=== PATIENT | male | born 1940 | race Caucasian/White ===

== ENCOUNTER → 2017-02-10 | Outpatient (CLI) | payer MEDICARE, BC ==
--- NOTE | 2017-02-10 15:32 | PN ---
PROGRESS NOTE DATE OF SERVICE: 02/10/2017 36-year-old gentleman who has [facility] of obstructive sleep apnea-hypopnea syndrome. I saw the patient a 1 year ago. Since that time, patient continued to use his equipment every night for the whole night without significant problem. Recently, his mask was changed from the fullface mask to different styles with Poly View mask and patient likes this mask. [place] Sleepiness Scale today is 15. I checked patient's CPAP unit. Usage for the last 6 months 169/180 nights, more than 4 hours 134/180 nights. Average usage 5.5 hours. Pressure is 10 cm of water. Leak is up to 56 L/minute. Apnea-hypopnea index for the last 6 months average 5, which is acceptable normal range. For the last month it is 3.3. MEDICATIONS: Enalapril, simvastatin, and also medication for BPH. The patient does not remember the name. PHYSICAL EXAM: GENERAL Patient in no distress. VITAL SIGNS BP 199/87, HR 74, RR 16, height 5 feet 8 inches, weight 234, BMI 35.5, temperature 97.9, oxygen saturation room air 97%. HEENT PERRLA, EOMI, evaluation of oropharynx showed low position of soft palate. NECK Supple, no JVD. Thyroid is not palpable. LUNGS Clear to percussion and to auscultation. Good air exchange. No wheezing or rhonchi. HEART S1, S2 regular. No murmurs, gallops, or rubs. ABDOMEN Obese. Soft and nontender. Bowel sounds are present. No organomegaly appreciated. EXTREMITIES No clubbing or cyanosis. REVERBERATORY FURNACE SUPERVISOR Awake, alert, and oriented X3. Cranial nerves 2 to 7 intact. There is no fasciculation or atrophy. noted. No focal deficits observed. IMPRESSION: 1. Severe obstructive sleep apnea-hypopnea syndrome apnea-hypopnea index 57.5 with oxygen desaturation to 85% on control with CPAP at the pressure of 10 cm of water. Patient demonstrated good compliance with treatment benefitting from treatment. 2. Obesity. Weight is the same as during the previous visit. 3. History of periodic limb movements during titration, but no any clinical symptoms of leg movements at night. 4. Hypertension. 5. Emphysema. 6. Hyperlipidemia. 7. History of depression. 8. History of sinusitis. 9. Some restriction of nasal breathing. Patient has to use fullface mask. PLAN: 1. Continue treatment with CPAP every night for the whole night with the same pressure. 2. Continue to use Poly View mask. 3. Losing weight. 4. Sleep hygiene time bed for at least 8 hours. 5. No driving if feeling sleepiness. 6. Renew a new prescription for all CPAP supplies including mask, tube, filters. Thank you very much for allowing me to participate in management of your patient. Sincerely, Kodi De Anda MD, PhD, FAASM Diplomat of [place] [employer] [place] [employer] [facility] [employer] [facility] [place] MMODL / ALEJAN: [id number] /
== END | disposition home or self-care (01) ==
LOC: SLEEP 14:16
PROVIDERS: ATTEND Internal Medicine
DX: G47.33 Obstructive sleep apnea (adult) (pediatric) (principal); I10 Essential (primary) hypertension; J43.9 Emphysema, unspecified; E78.5 Hyperlipidemia, unspecified; E66.9 Obesity, unspecified; Z68.35 Body mass index [BMI] 35.0-35.9, adult; Z86.59 Personal history of other mental and behavioral disorders; Z79.899 Other long term (current) drug therapy

== ENCOUNTER → 2017-09-28 | Outpatient (CLI) | payer MEDICARE, BC ==
--- NOTE | 2017-09-28 17:28 | XR ---
EXAMINATION TYPE: XR chest 2V DATE OF EXAM: 09/28/2017 COMPARISON: 11/04/2011 CT HISTORY: 77-year-old male COPD, annual physical TECHNIQUE: Frontal and lateral views FINDINGS: Heart normal size. Some hazy left basilar density compatible with prominent epicardial fat pad. Mild elongation thoracic aorta. Strandy bibasilar opacities, likely atelectasis or scarring. No consolidat ion or pleural effusion. Mild hyperinflation. IMPRESSION: Hyperinflation may reflect underlying emphysema. No acute process identified.
== END | disposition home or self-care (01) ==
LOC: RADXRMAIN 11:11
PROVIDERS: ATTEND Family Medicine
DX: J44.0 Chronic obstructive pulmonary disease with (acute) lower respiratory infection (principal)
CPT/HCPCS: 71046

== ENCOUNTER → 2017-10-18 | Outpatient (CLI) | payer MEDICARE, BC ==
[~2017-10-18] MED LIST: REGADENOSON 0.4 MG/5 ML SYRINGE IV ONE
--- NOTE | 2017-10-18 10:55 | ECHOF ---
Referral Reason:I10 Hypertension, J44.9 COPD MEASUREMENTS -------- HEIGHT: 172.7 cm WEIGHT: 104.3 kg BP: RVIDd: 2.8 cm (< 3.3) IVSd: 1.5 cm (0.6 - 1.1) LVIDd: 6.1 cm (3.9 - 5.3) LVPWd: 1.4 cm (0.6 - 1.1) IVSs: 1.7 cm LVIDs: 4.6 cm LVPWs: 1.5 cm LAESV Index (A-L): 39.29 ml/m Ao Diam: 4.0 cm (2.0 - 3.7) AV Cusp: 1.5 cm (1.5 - 2.6) LA Diam: 3.7 cm (2.7 - 3.8) MV EXCURSION: 17.354 mm (> 18.000) MV EF SLOPE: 61 mm/s (70 - 150) EPSS: 1.5 cm MV E Juan Pablo: 0.63 m/s MV DecT: 252 ms MV A Juan Pablo: 0.68 m/s MV E/A Ratio: 0.93 RAP: 5.00 mmHg RVSP: 13.63 mmHg FINDINGS -------- Sinus rhythm. This was a techncally difficult study with suboptimal views, , Definity utilized for enhancement of i mages. The left ventricular size is normal. There is moderate concentric left ventricular hypertrophy. O verall left ventricular systolic function is mild-moderately impaired with, an EF between 40 - 45 %. Posterior hypokinesis The right ventricle is normal in size. The left atrial size is normal. LA is severely dilated >40 ml/m2 The right atrial size is normal. Lumason used The aortic valve is trileaflet, and appears structurally normal. No aortic stenosis or regurgitation. Mild mitral regurgitation is present. Mild tricuspid regurgitation present. There is no evidence of pulmonary hypertension. The right v entricular systolic pressure, as measured by Doppler, is 13.63mmHg. Trace/mild (physiologic) pulmonic regurgitation. The aortic root size is normal. There is no pericardial effusion. CONCLUSIONS -------- 1. This was a techncally difficult study with suboptimal views, , Definity utilized for enhancement o f images. 2. The left ventricular size is normal. 3. There is moderate concentric left ventricular hypertrophy. 4. Overall left ventricular systolic function is mild-moderately impaired with, an EF between 40 - 45 %. 5. Posterior hypokinesis 6. The right ventricle is normal in size. 7. The left atrial size is normal. 8. LA is severely dilated >40 ml/m2 9. The right atrial size is normal. 10. Lumason used 11. The aortic valve is trileaflet, and appears structurally normal. No aortic stenosis or regurgitat ion. 12. Mild mitral regurgitation is present. 13. Mild tricuspid regurgitation present. 14. There is no evidence of pulmonary hypertension. 15. The right ventricular systolic pressure, as measured by Doppler, is 13.63mmHg. 16. Trace/mild (physiologic) pulmonic regurgitation. 17. The aortic root size is normal. 18. There is no pericardial effusion. FURNACE SETTER: Laura Trevizo RDCS
--- NOTE | 2017-10-18 11:37 | EST ---
EXERCISE STRESS DATE OF SERVICE: 10/18/2017 AGE: 77 SEX: Male HT: 68" WT: 235 pounds PROTOCOL: Lexiscan Cardiolite STAGE: DURATION OF EXERCISE: HEART RATE REST: 88 BLOOD PRESSURE REST: 185/107 MAXIMUM HEART RATE ACHIEVED: 96 MAXIMUM BLOOD PRESSURE: 179/109 85% MPHR: 123 100% MPHR: 145 METS: INDICATIONS: Hypertension, COPD. CLINICAL INFORMATION: This is a 77-year-old male patient referred by Dr. Tony Sandra for a Lexiscan stress test. History of hypertension and COPD. Baseline heart rate 88 beats per minute. Baseline blood pressure 185/107 mmHg. Baseline 12-lead ECG shows normal sinus rhythm with normal NE right bundle branch block pattern with secondary ST changes. The patient received Lexiscan infusion per protocol. No significant change in heart rate or blood pressure. The patient had PVCs through the test. He was nauseated during the test. Nuclear portion will be reported separately. IMPRESSION: 1. Baseline abnormality in the 12-lead ECG. 2. Baseline elevated blood pressure. 3. No definite ECG abnormalities of ischemia during Lexiscan infusion. 4. Nuclear portion will be reported separately. MMODL / IJN: [id number] /
--- NOTE | 2017-10-18 11:41 | NM ---
EXAMINATION TYPE: NM stress lexiscan cardiolite DATE OF EXAM: 10/18/2017 COMPARISON: NONE HISTORY: I10 Hypertension, J44.9 COPD TECHNIQUE: After the intravenous administration of 10 mCi Tc 99m Sestamibi - Cardiolite resting SPEC T images acquired 45 minutes post injection. The patient received 0.4mg Lexiscan, 24.9 mCi Tc 99m Sestamibi - Stress images obtained [address] injection FINDINGS: Review of stress and rest SPECT images demonstrates predominantly fixed defects involving the cardiac apex and inferior wall with a small area reversibility within the cardiac apical region. Stress-karolina efrem ischemia is not excluded. Gated analysis shows normal wall motion with an estimated left ventricu lar ejection fraction of 30 %. Global hypokinesia noted. IMPRESSION: predominantly fixed defects involving the cardiac apex and inferior wall with a small area reversibi lity within the cardiac apical region. Stress-induced ischemia is not excluded.
== END | disposition home or self-care (01) ==
LOC: RADNMMAIN 10-17 07:56
PROVIDERS: ATTEND Family Medicine
DX: I08.1 Rheumatic disorders of both mitral and tricuspid valves (principal); I11.9 Hypertensive heart disease without heart failure; J44.9 Chronic obstructive pulmonary disease, unspecified; R94.31 Abnormal electrocardiogram [ECG] [EKG]
CPT/HCPCS: 93017; 78452; C8929; A9500; J2785; Q9950; 93306

== ENCOUNTER → 2017-11-14 | Outpatient (CLI) | payer MEDICARE, BC ==
[2017-11-14 15:51] LABS: HCT 45.3 % (39.0-53.0); HGB 14.7 gm/dL (13.0-17.5); MCH 29.5 pg (25.0-35.0); MCHC 32.4 g/dL (31.0-37.0); MCV 91.1 fL (80.0-100.0); Mean Platelet Volume 8.4; Platelet Count 171 k/uL (150-450); Potassium 4.4 mmol/L (3.5-5.1); RBC 4.97 m/uL (4.30-5.90); RDW 13.9 % (11.5-15.5); WBC 10.4 k/uL (3.8-10.6)
== END | disposition home or self-care (01) ==
LOC: LABWHC1 15:08
PROVIDERS: ATTEND Internal Medicine Interventional Cardiology
DX: Z01.812 Encounter for preprocedural laboratory examination (principal); I25.10 Atherosclerotic heart disease of native coronary artery without angina pectoris; I11.0 Hypertensive heart disease with heart failure; I50.22 Chronic systolic (congestive) heart failure
CPT/HCPCS: 36415; 80051; 82565; 84520; 85027

== ENCOUNTER 2017-11-22 10:26 | Day surgery (SDC) | payer MEDICARE, BC ==
[2017-11-21 08:37] VITALS: BMI 33.2
[~2017-11-22 10:26] MED LIST changes: +ALPRAZolam 0.25 MG TAB PO PRN; +ALPRAZolam 0.5 MG TAB PO PRN; +ASPIRIN 325 MG TAB PO STA; +ATORVASTATIN 80 MG TAB PO STA; +NITROGLYCERIN SL TABS 0.4 MG TAB SUBLINGUAL PRN; -REGADENOSON 0.4 MG/5 ML SYRINGE IV ONE; +SODIUM CHLORIDE 0.9% 1,000 ML in EMPTY BAG 1 BAG IV ONE
[2017-11-22] MEDS ORDERED: METOPROLOL TARTRATE 5 MG/5 ML VIAL IVP STA (11:45)
[2017-11-22] MEDS ORDERED: hydrALAZINE HCL 20 MG/ML 1 ML VIAL IVP STA ×2 (11:46→15:50)
[2017-11-22] MEDS ORDERED: MIDAZOLAM 2 MG/2 ML VIAL ONE (12:22)
[2017-11-22] MEDS ORDERED: LIDOCAINE 1% INJ 10MG/ML (20 ML MDV) SQ ONE (12:27)
[2017-11-22] MEDS ORDERED: MIDAZOLAM 2 MG/2 ML VIAL IVP ONE ×2 (12:27→12:35)
[2017-11-22] MEDS ORDERED: LIDOCAINE 1% INJ 10MG/ML (20 ML MDV) ONE ×2 (12:27→12:30)
[2017-11-22] MEDS ORDERED: fentaNYL (PF) 50 MCG/ML 2 ML AMP ONE (12:50)
[2017-11-22] MEDS ORDERED: fentaNYL (PF) 50 MCG/ML 2 ML AMP IVP ONE (12:51)
[2017-11-22] MEDS ORDERED: BIVALIRUDIN 250 MG in SODIUM CHLORIDE 0.9% 50 ML IV ONE (13:05)
[2017-11-22] MEDS ORDERED: BIVALIRUDIN BOLUS 250 MG/50 ML IV ONE (13:05)
[2017-11-22] MEDS ORDERED: SODIUM CHLORIDE 0.9% 1,000 ML IV ONE (13:07)
[2017-11-22] MEDS ORDERED: ADENOSINE 90 MG in SODIUM CHLORIDE 0.9% 60 ML IVP ONE (13:07)
[2017-11-22] MEDS ORDERED: HEPARIN SODIUM 1,000 UN/ML (10ML VL) ONE (13:15)
[2017-11-22] MEDS ORDERED: RX INFO: IV CONTRAST WAS GIVEN 1 EACH MISC MISCELLANE PRN (13:17)
[2017-11-22] MEDS ORDERED: SODIUM CHLORIDE 0.9% 1,000 ML IV SCH (13:30)
--- NOTE | 2017-11-22 13:55 | LTR ---
DATE OF SERVICE: 11/22/2017 RE: Ozzy Blanton Dear Dr. Sandra; MrShabbir Blanton underwent a heart catheterization and that revealed intermediate lesion involving the mid RCA. The lesion is nonischemic and confirmed by fractional flow reserve method. I recommended maximize medical treatment and follow up with him. I want to thank you for allowing me to participate in his care and please do not hesitate to call if you have any question or concern. Sincerely, MD CRISTINA Nathan / NGOZI: [id number] /
--- NOTE | 2017-11-22 13:58 | CC ---
CARDIAC CATHETERIZATION REPORT DATE OF SERVICE: 11/22/2017. PERFORMING PHYSICIAN: Forest Chauhan MD. PROCEDURE PERFORMED: 1. Selective left and right coronary angiogram. 2. Right heart catheterization. 3. Left heart catheterization. 4. Selective right and left coronary angiogram. 5. Fractional flow reserve FFR of the RCA. INDICATIONS: This is a pleasant 77-year-old gentleman with a past medical history significant for hypertension as well as dyslipidemia and also history of COPD, who was experiencing symptoms of being tired and fatigued as well as more short of breath with exertion. No chest pain or chest discomfort. He underwent a myocardial perfusion imaging stress test and that revealed an apical ischemia as well as a fixed defect involving the inferior wall of the left ventricle. He underwent an echocardiogram which showed impaired LV function with EF between 40% to 45%. Because of that, heart catheterization was recommended. APPROACH: Right common femoral artery. COMPLICATIONS: None. LEVEL OF SEDATION: Moderate with sedation length of 50 minutes. PROCEDURE DESCRIPTION: After obtaining an informed consent, the patient was brought to cardiac labor relations officer. The right common femoral artery was cannulated using micropuncture technique and a micropuncture wire passed easily then I placed a 6-Malian sheath. Subsequently I did cannulate the right common femoral vein using micropuncture technique under ultrasound guidance. The micropuncture wire passed easily. Then I placed this is an 8-Malian sheath in the right common femoral vein. After that I did right heart catheterization using a Dahlen catheter, which was is inserted through the venous sheath all the way into wedge position. Then I did a pullback to the pulmonary artery, RV, RA as well. Subsequently I did selective right and left coronary angiogram using JR4 and JL4 catheters. After that, I did left heart catheterization using 6-Malian pigtail catheter. Then I did fractional flow reserve FFR of the RCA. HEMODYNAMICS: 1. The pulmonary capillary wedge pressure was 26 mmHg. 2. Pulmonary artery pressures were as follows: Systolic 39, diastolic 24, and mean of 31 mmHg. 3. Right ventricular pressures were as follows: Systolic 64, end-diastolic 12 mmHg. 4. RV pressure was 11 mmHg. SELECTIVE CORONARY ANGIOGRAM: 1. RCA is a large caliber vessel and it is a dominant vessel. The RCA in the midportion has eccentric lesion, appeared to be in the range of 50%. We did an FFR on the lesion and that came in to be nonischemic at 0.89. 2. The left main is angiographically normal. It bifurcates into the circumflex and left anterior descending artery. 3. The left circumflex is a large caliber vessel. It is a nondominant vessel. It is angiographically normal. It gives rise into a large OM branch which seems to be angiographically normal. 4. The proximal LAD has mild disease only. It gives rise into the first and second diagonal branches, both are angiographically normal. The mid LAD and distal LAD are angiographically normal. HEMODYNAMICS OF LEFT VENTRICLE: The left ventricular end-diastolic pressure was about 18 mmHg and no significant gradient was identified across the aortic valve. FFR of the RCA after anticoagulation was initiated using Angiomax. After zeroing the Doppler wire and equalizing between the Doppler wire and the guiding catheter, we did FFR per IV adenosine infusion and the FFR came in to be 0.89 which is nonischemic. CONCLUSION: 1. Mild pulmonary hypertension. The pulmonary artery systolic pressure was 40 mm Hg. 2. Elevated left ventricular end-diastolic pressure. 3. 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 4. Mild disease involving the left anterior descending artery. POSTPROCEDURE MANAGEMENT: Given these findings, I recommended maximize medical treatment only. The patient will be discharged home today. I will follow up with him in the office in a week. MMODL / IJN: [id number] /
[2017-11-22] MEDS ORDERED: ALPRAZolam 0.25 MG TAB PO STA (15:50)
[2017-11-22 18:56] VITALS: PULSE 81; RESP 20; TEMP 98
[2017-11-22 22:08] VITALS: BP 159/75
== END 2017-11-22 23:00 | disposition home or self-care (01) ==
LOC: CATHCVL 10:26 → 3OBS 13:18 → CATHCVL 23:00
PROVIDERS: ATTEND Internal Medicine Interventional Cardiology
DX: I25.110 Atherosclerotic heart disease of native coronary artery with unstable angina pectoris (principal); I42.9 Cardiomyopathy, unspecified; E78.5 Hyperlipidemia, unspecified; R94.39 Abnormal result of other cardiovascular function study; J44.9 Chronic obstructive pulmonary disease, unspecified; E78.00 Pure hypercholesterolemia, unspecified; F17.210 Nicotine dependence, cigarettes, uncomplicated; I27.20 Pulmonary hypertension, unspecified; I11.0 Hypertensive heart disease with heart failure; I50.22 Chronic systolic (congestive) heart failure; Z79.899 Other long term (current) drug therapy
CPT/HCPCS: 93460; 93571; J2250; J0360; J2001; J3010; J0583; J0153; 93453

== ENCOUNTER 2018-10-09 14:36 | Emergency (ER) | payer MEDICARE, BC ==
[2018-10-09 14:57] VITALS: BP 179/92; PULSE 92; RESP 18; TEMP 98.6
[2018-10-09] MEDS ORDERED: SODIUM CHLORIDE 0.9% 500 ML IV STA (16:26)
[2018-10-09] MEDS ORDERED: MECLIZINE 12.5 MG TAB PO STA (16:26)
--- NOTE | 2018-10-09 16:45 | ED ---
General Adult HPI - General Chief complaint: Dizziness Stated complaint: High BP/lightheaded Time Seen by Provider: 10/09/18 16:07 Source: patient Mode of arrival: wheelchair Limitations: no limitations - History of Present Illness Initial comments: Dictation was produced using [employer] dictation software. please excuse any grammatical, word or spelling errors. Chief Complaint: Patient is 78-year-old male with past medical history dyslipidemia, hypertension and hearing difficulties presents with episode of dizziness. History of Present Illness: Patient is 78-year-old male with past medical history dyslipidemia hypertension and heart appearing presents with episode of dizziness. Patient states that today he had episode that lasts several seconds where he felt lightheaded like he was on a fall. He does report that he felt like the room was slightly spinning. He had an episode earlier today and went to lie down during the his symptoms. He states that his symptoms worse with lying flat. His symptoms resolved. He then came to the emergency department for medical evaluation. While checking into the emergency department he had another episode and went to go sit down. 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 Patient states that while waiting in the emergency department room his symptoms abated. He feels fine and at baseline currently. Patient currently on amoxicillin for sore throat that was prescribed by your nose and throat doctor. The ROS documented in this emergency department record has been reviewed and confirmed by me. Those systems with pertinent positive or negative responses have been documented in the HPI. All other systems are other negative and/or noncontributory. PHYSICAL EXAM: General Impression: Alert and oriented x3, not in acute distress HEENT: Normocephalic atraumatic, extra-ocular movements intact, pupils equal and reactive to light bilaterally, mucous membranes moist, impacted cerumen to bilateral external auditory canals Cardiovascular: Heart regular rate and rhythm, S1&S2 audible, no murmurs, rubs or gallops Chest: Lungs clear to auscultation bilaterally, no rhonchi, no wheeze, no rales Abdomen: Bowel sounds present, abdomen soft, non-tender, non-distended, no organomegaly Musculoskeletal: Pulses present and equal in all extremities, no peripheral edema Motor: no focal deficits noted Neurological: CN II-XII grossly intact, no focal motor or sensory deficits noted, left beating nystagmus with left gaze Skin: Intact with no visualized rashes Psych: Normal affect and mood ED course: 78-year-old male presents with episode of dizziness that is positional. Presentation concerning for benign positional vertigo signs upon arrival are within acceptable limits. His blood pressure slightly elevated 179/92. He has a history of hypertension. Patient denies any headache, melody rtness of breath or chest pain. Patient at bedside feels baseline. He does have findings of impacted cerumen to bilateral external auditory canals. Patient denies any palpitations or rapid heartbeat during his episode. Patient had a cardiac catheterization performed in November of last year showing intermediate disease of mid right coronary artery. At the time of the catheterization no intervention was pursued.Bilateral external auditory canals were irrigated. Patient continues to endorse no symptoms. Patient tonight members are visualized. Patient given Antivert. Patient states his symptoms are actually improved. He states that he'll avoid better. Patient denies any dizziness. Basic labs are obtained showing no acute processes. Patient clear for discharge. At this point patient's symptoms are likely secondary to episodic BPPV given positional nature of his symptoms. Told to follow up with his primary care physician. Given 1 tablet of Antivert. Patient given prescription for Antivert told to take it when necessary symptoms. Return precautions discussed patient understandable agreeable to disposition. EKG interpretation: Ventricular rate 95, normal sinus rhythm with right bundle branch block,. 194, care is 144, QTC 517. No FL prolongation, no QTC prolongation, no ST or T-wave changes noted. No old EKG for comparison Overall, this EKG is unremarkable - Related Data Home Medications Medication Instructions Recorded Confirmed Dutasteride/Tamsulosin HCl [Anamika 1 tab PO DAILY 11/21/17 10/09/18 0.5-0.4 mg Capsule] Escitalopram [Lexapro] 20 mg PO DAILY 11/21/17 10/09/18 Losartan Potassium 100 mg PO DAILY 11/21/17 10/09/18 Simvastatin [Zocor] 20 mg PO DAILY 11/21/17 10/09/18 Amoxic-Pot Clav 875-125Mg 1 tab PO BID 10/09/18 10/09/18 [Augmentin 875-125] Furosemide [Lasix] 20 mg PO DAILY 10/09/18 10/09/18 Multivitamins, Thera [Multivitamin 1 tab PO DAILY 10/09/18 10/09/18 (formulary)] hydrALAZINE HCL [Apresoline] 25 mg PO BID 10/09/18 10/09/18 Previous Rx's Medication Instructions Recorded Meclizine [Antivert] 25 mg PO BID PRN #20 tab 10/09/18 Allergies Allergy/AdvReac Type Severity Reaction Status Date / Time No Known Allergies Allergy Verified 10/09/18 17:02 Review of Systems ROS Statement: Those systems with pertinent positive or pertinent negative responses have been documented in the HPI. ROS Other: All systems not noted in ROS Statement are negative. Past Medical History Past Medical History: Hyperlipidemia, Hypertension History of Any Multi-Drug Resistant Organisms: None Reported Past Surgical History: Orthopedic Surgery Past Psychological History: Depression Smoking Status: Current every day smoker Past Alcohol Use History: Rare Past Drug Use History: None Reported General Exam Limitations: no limitations Course Vital Signs 10/09/18 14:53 Temperature 98.6 F Pulse Rate 92 Respiratory 18 Rate Blood Pressure 179/92 O2 Sat by Pulse 93 L Oximetry Medical Decision Making - Lab Data Result diagrams: 10/09/18 16:56 10/09/18 16:56 Lab Results 10/09/18 10/09/18 Range/Units 16:56 16:56 WBC 11.8 H (3.8-10.6) k/uL RBC 4.94 (4.30-5.90) m/uL Hgb 14.9 (13.0-17.5) gm/dL Hct 45.9 (39.0-53.0) % MCV 93.0 (80.0-100.0) fL MCH 30.1 (25.0-35.0) pg MCHC 32.4 (31.0-37.0) g/dL RDW 13.8 (11.5-15.5) % Plt Count 156 (150-450) k/uL Neutrophils % 77 % Lymphocytes % 16 % Monocytes % 4 % Eosinophils % 1 % Basophils % 0 % Neutrophils # 9.2 H (1.3-7.7) k/uL Lymphocytes # 1.9 (1.0-4.8) k/uL Monocytes # 0.5 (0-1.0) k/uL Eosinophils # 0.1 (0-0.7) k/uL Basophils # 0.0 (0-0.2) k/uL Sodium 140 (137-145) mmol/L Potassium 4.2 (3.5-5.1) mmol/L Chloride 106 (98-107) mmol/L Carbon Dioxide 24 (22-30) mmol/L Anion Gap 10 mmol/L BUN 23 H (9-20) mg/dL Creatinine 1.02 (0.66-1.25) mg/dL Est GFR (CKD-EPI)AfAm 82 (>60 ml/min/1.73 sqM) Est GFR (CKD-EPI)NonAf 71 (>60 ml/min/1.73 sqM) Glucose 94 (74-99) mg/dL Calcium 9.0 (8.4-10.2) mg/dL Disposition Clinical Impression: Dizziness Disposition: HOME SELF-CARE Condition: Good Instructions (If sedation given, give patient instructions): Dizziness (ED) Prescriptions: Meclizine [Antivert] 25 mg PO BID PRN #20 tab PRN Reason: dizziness Is patient prescribed a controlled substance at d/c from ED?: No Referrals: Tony Sandra DO [Primary Care Provider] - 1-2 days Time of Disposition: 18:03
[2018-10-09 17:39] LABS: Basophils % (A) 0 %; Eosinophils # (A) 0.1 k/uL (0-0.7); Eosinophils % (A) 1 %; HCT 45.9 % (39.0-53.0); HGB 14.9 gm/dL (13.0-17.5); Lymphocytes # (A) 1.9 k/uL (1.0-4.8); Lymphocytes % (A) 16 %; MCH 30.1 pg (25.0-35.0); MCHC 32.4 g/dL (31.0-37.0); Mean Platelet Volume 7.7; Monocytes # (A) 0.5 k/uL (0-1.0); Monocytes % (A) 4 %; Neutrophils # (A) 9.2 k/uL (1.3-7.7); Neutrophils % (A) 77 %; Platelet Count 156 k/uL (150-450); RBC 4.94 m/uL (4.30-5.90); RDW 13.8 % (11.5-15.5); WBC 11.8 k/uL (3.8-10.6)
[2018-10-09 17:52] LABS: Potassium 4.2 mmol/L (3.5-5.1)
== END 2018-10-09 18:10 | disposition home or self-care (01) ==
LOC: EC 14:36
DX: R42 Dizziness and giddiness (principal); I10 Essential (primary) hypertension; H61.23 Impacted cerumen, bilateral; E78.5 Hyperlipidemia, unspecified; I25.10 Atherosclerotic heart disease of native coronary artery without angina pectoris; F32.9 Major depressive disorder, single episode, unspecified; F17.200 Nicotine dependence, unspecified, uncomplicated; Z95.818 Presence of other cardiac implants and grafts; Z79.899 Other long term (current) drug therapy
CPT/HCPCS: 36415; 80048; 84484; 85025; 93005; 99284

== ENCOUNTER → 2018-10-16 | Outpatient (CLI) | payer MEDICARE, BC ==
--- NOTE | 2018-10-16 14:05 | XR ---
EXAMINATION TYPE: XR chest 2V DATE OF EXAM: 10/16/2018 COMPARISON: 09/28/2017 INDICATION: Sinusitis, history of COPD TECHNIQUE: Frontal and lateral views of the chest are obtained. FINDINGS: The heart size is normal. The pulmonary vasculature is normal. The lungs are clear. IMPRESSION: 1. No acute pulmonary process.
--- NOTE | 2018-10-16 14:10 | CT ---
EXAMINATION TYPE: CT sinus wo con DATE OF EXAM: 10/16/2018 COMPARISON: None HISTORY: Chronic sinusitis CT DLP: 605.90 mGycm CONTRAST: Neuro mL of Isovue 300 The paranasal sinuses are examined in the axial plane at 2 mm thick sections. Reconstructed images i n the coronal plane were obtained. There is dental amalgam scatter artifact The maxillary sinuses are clear. The ethmoid air cells are clear. The sphenoid sinuses are clear. The frontal sinuses are clear. The septum is evaluated. There is septal deviation to the . The ostiomeatal units are patent. There may be prior right lamina Propecia fracture. Nasal bones and maxillary spine are intact. IMPRESSIONS: 1. No suspicious chronic or acute sinusitis type changes
== END | disposition home or self-care (01) ==
LOC: RADCTMAIN 13:20
PROVIDERS: ATTEND Otolaryngology
DX: J32.9 Chronic sinusitis, unspecified (principal); R05 Cough
CPT/HCPCS: 70486; 71046

== ENCOUNTER 2018-12-07 18:49 | Emergency (ER) | payer MEDICARE, BC ==
[2018-12-07] MEDS ORDERED: KETOROLAC 30 MG/ML 1 ML VIAL IVP STA (19:19)
[2018-12-07] MEDS ORDERED: IPRATROPIUM-ALBUTEROL 3 ML NEB INHALATION STA ×2 (19:20→21:40)
--- NOTE | 2018-12-07 19:23 | ED ---
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 He denies any cough fevers chills nausea vomiting sweats he does have shortness of breath no other modifying factors he denies any trauma. MD Complaint: chest pain, other - Related Data Home Medications Medication Instructions Recorded Confirmed Dutasteride/Tamsulosin HCl [Anamika 1 tab PO DAILY 11/21/17 12/07/18 0.5-0.4 mg Capsule] Escitalopram [Lexapro] 20 mg PO DAILY 11/21/17 12/07/18 Losartan Potassium 100 mg PO DAILY 11/21/17 12/07/18 Simvastatin [Zocor] 20 mg PO DAILY 11/21/17 12/07/18 Furosemide [Lasix] 20 mg PO DAILY 10/09/18 12/07/18 Multivitamins, Thera [Multivitamin 1 tab PO DAILY 10/09/18 12/07/18 (formulary)] hydrALAZINE HCL [Apresoline] 25 mg PO BID 10/09/18 12/07/18 Carvedilol Phosphate [Carvedilol 40 mg PO DAILY 12/07/18 12/07/18 ER] Fexofenadine HCl [Noelle Allergy] 180 mg PO DAILY 12/07/18 12/07/18 Montelukast [Singulair] 10 mg PO DAILY 12/07/18 12/07/18 Previous Rx's Medication Instructions Recorded Amoxicillin/Potassium Clav 1 tab PO Q12HR #20 tab 12/07/18 [Augmentin 875-125 Tablet] predniSONE 20 mg PO BID #10 tab 12/07/18 Allergies Allergy/AdvReac Type Severity Reaction Status Date / Time No Known Allergies Allergy Verified 12/07/18 19:51 Review of Systems ROS Statement: Those systems with pertinent positive or pertinent negative responses have been documented in the HPI. ROS Other: All systems not noted in ROS Statement are negative. EKG Findings - EKG Results: EKG: interpreted by SANTYD, sinus rhythm (Sinus rhythm right bundle-branch block pattern rate was 79. Interval 170 QRS duration 172 QT since QTC 458/525) Past Medical History Past Medical History: Hyperlipidemia, Hypertension History of Any Multi-Drug Resistant Organisms: None Reported Past Surgical History: Heart Catheterization, Orthopedic Surgery Past Psychological History: Depression Smoking Status: Current every day smoker Past Alcohol Use History: Rare Past Drug Use History: None Reported General Exam - General Exam Comments Initial Comments: This a well-developed well-nourished awake alert oriented 3 male Limitations: no limitations General appearance: alert, anxious Head exam: Present: atraumatic, normocephalic, normal inspection Eye exam: Present: normal appearance, PERRL, EOMI. Absent: scleral icterus, conjunctival injection, periorbital swelling ENT exam: Present: normal exam, mucous membranes moist Neck exam: Present: normal inspection. Absent: tenderness, meningismus, lymphadenopathy Respiratory exam: Present: decreased breath sounds. Absent: respiratory distress, wheezes, rales, rhonchi, stridor, chest wall tenderness Cardiovascular Exam: Present: regular rate, normal rhythm, normal heart sounds. Absent: systolic murmur, diastolic murmur, rubs, gallop, clicks GI/Abdominal exam: Present: soft, normal bowel sounds. Absent: distended, tenderness, guarding, rebound, rigid, bruit, pulsatile mass Extremities exam: Present: normal inspection, full ROM, normal capillary refill. Absent: tenderness, pedal edema, joint swelling, calf tenderness Back exam: Present: normal inspection Neurological exam: Present: alert, oriented X3, CN II-XII intact Psychiatric exam: Present: normal affect, normal mood Skin exam: Present: warm, dry, intact, normal color. Absent: rash Course Vital Signs 12/07/18 12/07/18 12/07/18 18:52 19:19 19:28 Temperature 97.9 F Pulse Rate 77 82 Respiratory 18 20 16 Rate Blood Pressure 169/103 O2 Sat by Pulse 97 Oximetry 12/07/18 12/07/18 12/07/18 19:36 20:44 22:02 Temperature 99.5 F Pulse Rate 80 72 70 Respiratory 20 18 18 Rate Blood Pressure 144/84 O2 Sat by Pulse 94 L Oximetry 12/07/18 22:14 Temperature Pulse Rate 69 Respiratory 20 Rate Blood Pressure O2 Sat by Pulse Oximetry - Reevaluation(s) Reevaluation #1: 12/07/18 22:18 Patient did get some increased aeration and some relief with the initial treatment. CAT scan was done shows no evidence of any PE. Some increased interstitial markings pneumonia is considered. Procedures - Smoking Cessation Time Spent Discussing Smoking Cessation w/Patient (Minutes): 3 Patient Acknowledges Need for Cessation: Yes Chest Pain MDM - MDM I did review the imaging and report evidence of interstitial pneumonitis is evident. No pulmonary emboli. I did a long discussion with patient on several occasions was offered admission but is refusing to stay at this time he will be discharged home on oral antibiotics and steroids she is follow-up with his doctor return when necessary he also was encouraged to quit smoking Disposition Clinical Impression: Pneumonia, Chronic obstructive pulmonary disease (COPD), Smoking Disposition: HOME SELF-CARE Condition: Stable Instructions (If sedation given, give patient instructions): Community Acquired Pneumonia (ED), COPD (Chronic Obstructive Pulmonary Disease) (ED), How to Stop Smoking (ED) Additional Instructions: Prescriptions sent to your preferred pharmacy Prescriptions: Amoxicillin/Potassium Clav [Augmentin 875-125 Tablet] 1 tab PO Q12HR #20 tab predniSONE 20 mg PO BID #10 tab Is patient prescribed a controlled substance at d/c from ED?: No Referrals: Tony Sandra DO [Primary Care Provider] - 1-2 days
[2018-12-07 19:38] LABS: Basophils # (A) 0.1 k/uL (0-0.2); Basophils % (A) 0 %; Eosinophils # (A) 0.3 k/uL (0-0.7); Eosinophils % (A) 1 %; HCT 45.1 % (39.0-53.0); HGB 15.1 gm/dL (13.0-17.5); Lymphocytes # (A) 2.8 k/uL (1.0-4.8); Lymphocytes % (A) 15 %; MCH 31.6 pg (25.0-35.0); MCHC 33.5 g/dL (31.0-37.0); MCV 94.4 fL (80.0-100.0); Mean Platelet Volume 8.1; Monocytes # (A) 1.3 k/uL (0-1.0); Monocytes % (A) 7 %; Neutrophils # (A) 14.5 k/uL (1.3-7.7); Neutrophils % (A) 76 %; Platelet Count 171 k/uL (150-450); RBC 4.78 m/uL (4.30-5.90); RDW 14.1 % (11.5-15.5)
[2018-12-07 19:56] LABS: Albumin 4.2 g/dL (3.5-5.0); Magnesium 1.9 mg/dL (1.6-2.3); Total Bilirubin 0.6 mg/dL (0.2-1.3); Total Protein 7.2 g/dL (6.3-8.2)
[2018-12-07 20:03] LABS: INR 0.9 (<1.2); Partial Thromboplastin Time 26.8 sec (22.0-30.0); Prothrombin Time 10.1 sec (9.0-12.0)
[2018-12-07 20:05] LABS: D-Dimer 2.71 mg/L FEU (<0.60)
--- NOTE | 2018-12-07 20:32 | XR ---
EXAMINATION TYPE: XR chest 2V DATE OF EXAM: 12/07/2018 COMPARISON: 10/16/2018 HISTORY: Chest pain TECHNIQUE: Frontal and lateral views of the chest are obtained. FINDINGS: Heart is normal. Lungs are clear of consolidation. There are no hilar masses. There are ch est leads. There is no evidence of pleural effusion. IMPRESSION: No active cardiopulmonary disease. No change.
--- NOTE | 2018-12-07 21:08 | CT ---
EXAMINATION TYPE: CT angio chest DATE OF EXAM: 12/07/2018 8:59 PM COMPARISON: None HISTORY: Left sided chest pain. CT DLP: 486.1 mGycm Automated exposure control for dose reduction was used. CONTRAST: CTA scan of the thorax is performed with IV Contrast, patient injected with 88ml mL of Isovue 300, pu lmonary embolism protocol. There are 3-D post processed images.. FINDINGS: There is patchy pulmonary interstitial edema. There is no pleural effusion. There is mild subsegmenta l atelectasis at the lung bases. Heart is enlarged. There are no hilar masses. There is no thoracic a ortic aneurysm or dissection. The thoracic aorta is atheromatous. There are multiple small mediastina l lymph nodes that measure up to 1 cm. There is normal contrast opacification of the pulmonary arteries. There are no filling defects. There is spurring in the thoracic spine. I see no bony destructive process. IMPRESSION: CARDIOMEGALY. PULMONARY INTERSTITIAL EDEMA. THIS COULD RELATE TO PULMONARY INTERSTITIAL FIBROSIS OR P NEUMONIA OR HEART FAILURE. EDEMA APPEARS NEW COMPARED TO OLD CT SCAN OF 11/04/2011. NO EVIDENCE OF PULMONARY EMBOLISM.
[2018-12-07] MEDS ORDERED: cefTRIAXone IN SWFI 1,000 MG/10 ML SYRINGE IVP STA (21:39)
[2018-12-07 23:04] VITALS: BP 130/96; PULSE 70; RESP 18; TEMP 99.3
== END 2018-12-07 23:14 | disposition home or self-care (01) ==
LOC: EC 18:49
DX: J44.9 Chronic obstructive pulmonary disease, unspecified (principal); J18.9 Pneumonia, unspecified organism; I10 Essential (primary) hypertension; E78.5 Hyperlipidemia, unspecified; F32.9 Major depressive disorder, single episode, unspecified; F17.200 Nicotine dependence, unspecified, uncomplicated; Z71.6 Tobacco abuse counseling; Z79.02 Long term (current) use of antithrombotics/antiplatelets; Z79.899 Other long term (current) drug therapy; Z95.5 Presence of coronary angioplasty implant and graft
CPT/HCPCS: 99285 ×2; 96374 ×2; 96375 ×2; 36415; 94640 ×2; 93005; 85379; 80053; 82550; 83690; 83735; 84484; 85025; 85610; 85730; 71046; 71275; J0696; J1885; Q9967

== ENCOUNTER → 2019-02-20 | Outpatient (CLI) | payer MEDICARE, BC ==
--- NOTE | 2019-02-20 15:26 | XR ---
EXAMINATION TYPE: XR knee complete bilateral DATE OF EXAM: 02/20/2019 CLINICAL HISTORY: Chronic pain of bilateral knees. TECHNIQUE: Three views of the bilateral knees were obtained. Additional frontal weightbearing AP vie w of both knees was obtained. COMPARISON: None. FINDINGS: There is no acute fracture/dislocation evident in either knee. The tri-compartment joint spaces appear aligned. Mild medial compartment joint space narrowing is seen bilaterally. Small trico mpartmental osteophytes are noted. The overlying soft tissue appears unremarkable. IMPRESSION: There is no acute fracture or dislocation in either knee. Mild bilateral tricompartmenta l arthropathy.
== END | disposition home or self-care (01) ==
LOC: RADXRMAIN 13:35
PROVIDERS: ATTEND Family Medicine
DX: M17.0 Bilateral primary osteoarthritis of knee (principal)

== ENCOUNTER → 2019-09-24 | Outpatient (CLI) | payer MEDICARE, BC ==
--- NOTE | 2019-09-24 11:39 | XR ---
EXAMINATION TYPE: XR elbow complete RT DATE OF EXAM: 09/24/2019 CLINICAL HISTORY: Nonhealing wound. Pain and swelling. TECHNIQUE: Frontal, lateral and oblique images of the right elbow are obtained. COMPARISON: None FINDINGS: There is no acute fracture/dislocation evident in the right elbow. No abnormal fat pad si gns are seen. [id number]-[id number] ulnohumeral articulation spurring. Large spurring or ossification fro m the olecranon at the distal triceps tendon attachment where there is [id number] subcutaneous edema extending proximally and along the ulnar aspect. No suspicious bony destruction or cortical sundar ction to suggest acute osteomyelitis IMPRESSION: As above.
== END | disposition home or self-care (01) ==
LOC: RADXRMAIN 11:18
PROVIDERS: ATTEND Family Medicine
DX: L03.113 Cellulitis of right upper limb (principal)

== ENCOUNTER 2019-12-30 21:40 | Emergency (ER) | payer BC, MEDICARE ==
[2019-12-30] MEDS ORDERED: SODIUM CHLORIDE 0.9% 500 ML 500 ML IV STA (21:57)
[2019-12-30] MEDS ORDERED: TRIMETHOBENZAMIDE 100 MG/ML 2 ML VIAL IM STA (22:02)
[2019-12-30] MEDS ORDERED: diphenhydrAMINE 50 MG/ML 1 ML VIAL IVP STA (22:05)
[2019-12-30 22:40] LABS: Basophils % (A) 0 %; Eosinophils # (A) 0.2 k/uL (0-0.7); Eosinophils % (A) 2 %; HCT 47.6 % (39.0-53.0); HGB 15.6 gm/dL (13.0-17.5); Lymphocytes # (A) 2.5 k/uL (1.0-4.8); Lymphocytes % (A) 20 %; MCH 31.4 pg (25.0-35.0); MCHC 32.8 g/dL (31.0-37.0); MCV 95.6 fL (80.0-100.0); Mean Platelet Volume 9.2; Monocytes # (A) 0.7 k/uL (0-1.0); Monocytes % (A) 5 %; Neutrophils # (A) 9.1 k/uL (1.3-7.7); Neutrophils % (A) 72 %; Platelet Count 165 k/uL (150-450); RBC 4.98 m/uL (4.30-5.90); RDW 13.7 % (11.5-15.5); WBC 12.6 k/uL (3.8-10.6)
[2019-12-30 23:02] LABS: Albumin 3.9 g/dL (3.5-5.0); Calcium 9.5 mg/dL (8.4-10.2); Potassium 3.6 mmol/L (3.5-5.1); Total Bilirubin 0.7 mg/dL (0.2-1.3); Total Protein 6.6 g/dL (6.3-8.2)
--- NOTE | 2019-12-30 23:18 | CT ---
EXAMINATION TYPE: CT brain wo con DATE OF EXAM: 12/30/2019 COMPARISON: HISTORY: weakness CT DLP: 1107.4 mGycm Automated exposure control for dose reduction was used. There is cerebral cortical atrophy. There is no mass effect nor midline shift. There is no sign of in tracranial hemorrhage. There is patchy hypodensity in the periventricular white matter. There is old 2 x 1 cm lacunar infarct in the anterior left internal capsule. There is some enlargement of the fron giovanny horn left lateral ventricle. The calvarium is intact. The skull base is intact. IMPRESSION: Cerebral atrophy. Chronic small vessel ischemia. 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 No a cute intracranial abnormality.
--- NOTE | 2019-12-30 23:24 | XR ---
EXAMINATION TYPE: XR chest 2V DATE OF EXAM: 12/30/2019 COMPARISON: 12/07/2017 HISTORY: Pain TECHNIQUE: FINDINGS: There is no heart failure nor confluent pneumonic infiltrate. Costophrenic angles are clear . There is relative poor inspiration. There are chest leads. IMPRESSION: Poor inspiration similar to old exam. Normal heart.
--- NOTE | 2019-12-30 23:25 | XR ---
EXAMINATION TYPE: XR KUB DATE OF EXAM: 12/30/2019 COMPARISON: NONE HISTORY: Abdominal pain TECHNIQUE: 2 views supine FINDINGS: There is no sign of intestinal obstruction or pneumoperitoneum. Fecal pattern is normal. Joselyn ng bases are clear. There are no pathologic calcifications over the kidneys. There is no evidence of abdominal mass. IMPRESSION: Nonacute abdomen.
[2019-12-30 23:40] LABS: Appearance,Urine Clear (Clear); Bilirubin,Urine Negative (Negative); Blood,Urine Negative (Negative); Color,Urine Yellow; Glucose,Urine (UA) Negative (Negative); Ketones,Urine Negative (Negative); Leukocyte Esterase,Urine Negative (Negative); Nitrite,Urine Negative (Negative); PH, Urine 5.5 (5.0-8.0); Protein,Urine Negative (Negative); Urobilinogen,Urine <2.0 mg/dL (<2.0)
[2019-12-30] MEDS ORDERED: ASPIRIN 81 MG PO STA (23:48)
[2019-12-30] MEDS ORDERED: NITROGLYCERIN SL TABS 0.4 MG TAB SUBLINGUAL PRN (23:48)
--- NOTE | 2019-12-31 00:14 | ED ---
General Adult HPI - General Source: patient, RN notes reviewed, old records reviewed Mode of arrival: wheelchair <Myke Le - Last Filed: 12/31/19 00:25> <Jesusita Price - Last Filed: 12/31/19 02:56> - General Chief complaint: Nausea/Vomiting/Diarrhea Stated complaint: Syncope,Dizziness Time Seen by Provider: 12/30/19 21:51 - History of Present Illness Initial comments: 79-year-old male patient presents to ED for evaluation of nausea and vomiting. Patient is poorly sitting at the table stating he didn't feel well he reportedly started sweating then began having nausea and vomiting. Patient denies chest pain or shortness of breath. Reportedly had a headache earlier in the day which has resolved. Denies any other acute complaints. Systemic: Pt denies fatigue, fever/chills, rash. Pt denies weakness, night sweats, weight loss. Neuro: Pt denies headache, visual disturbances, syncope or pre-syncope. HEENT: Pt denies ocular discharge or irritation, otalgia, rhinorrhea, pharyngitis or notable lymphadenopathy. Cardiopulmonary: Pt denies chest pain, SOB, heart palpitations, dyspnea on exertion. Abdominal/GI: Pt denies abdominal pain. : Pt denies dysuria, burning w/ urination, frequency/urgency. Denies new onset urinary or bowel incontinence. MSK: Pt denies myalgia, loss of strength or function in extremities. Neuro: Pt denies new onset weakness, paresthesias. (Myke Le) - Related Data Home Medications Medication Instructions Recorded Confirmed Dutasteride/Tamsulosin HCl [Anamika 1 tab PO DAILY 11/21/17 12/30/19 0.5-0.4 mg Capsule] Losartan Potassium 100 mg PO DAILY 11/21/17 12/30/19 Simvastatin [Zocor] 20 mg PO DAILY 11/21/17 12/30/19 Furosemide [Lasix] 20 mg PO DAILY 10/09/18 12/30/19 Multivitamins, Thera [Multivitamin 1 tab PO DAILY 10/09/18 12/30/19 (formulary)] hydrALAZINE HCL [Apresoline] 25 mg PO DAILY 10/09/18 12/30/19 Carvedilol Phosphate [Carvedilol 40 mg PO DAILY 12/07/18 12/30/19 ER] Montelukast [Singulair] 10 mg PO DAILY 12/07/18 12/30/19 Aspirin EC [Ecotrin Low Dose] 81 mg PO DAILY 12/30/19 12/30/19 Cetirizine HCl [Zyrtec] 10 mg PO DAILY 12/30/19 12/30/19 DULoxetine HCL [Cymbalta] 30 mg PO DAILY 12/30/19 12/30/19 DULoxetine HCL [Cymbalta] 60 mg PO DAILY 12/30/19 12/30/19 Allergies Allergy/AdvReac Type Severity Reaction Status Date / Time No Known Allergies Allergy Verified 12/30/19 21:47 Review of Systems ROS Other: All systems not noted in ROS Statement are negative. <Myke Le - Last Filed: 12/31/19 00:25> ROS Other: All systems not noted in ROS Statement are negative. <Jesusita Price - Last Filed: 12/31/19 02:56> ROS Statement: Those systems with pertinent positive or pertinent negative responses have been documented in the HPI. Past Medical History Past Medical History: Hyperlipidemia, Hypertension History of Any Multi-Drug Resistant Organisms: None Reported Past Surgical History: Heart Catheterization, Orthopedic Surgery Past Psychological History: Depression Smoking Status: Current every day smoker Past Alcohol Use History: Rare Past Drug Use History: None Reported <Myke Le - Last Filed: 12/31/19 00:25> General Exam <Myke Le - Last Filed: 12/31/19 00:25> - General Exam Comments Initial Comments: Constitutional: NAD, AOX3, Pt has pleasant affect. HEENT: NC/AT, trachea midline, neck supple, no lymphadenopathy. Posterior pharynx non erythematous, without exudates. External ears appear normal, without discharge. Mucous membranes moist. Eyes PERRLA, EOM intact. There is no scleral icterus. No pallor noted. Cardiopulmonary: RRR, no murmurs, rubs or gallops, no JVD noted. Lungs CTAB in anterior and posterior tobin. No peripheral edema. Abdominal exam: Abdomen soft and non-distended. Abdomen non-tender to palpation in all 4 quadrants. Bowel sounds active in LLQ. No hepatosplenomegaly. No ecchymosis Neuro: CN II-XII intact. No nuchal rigidity. No raccon eyes, no card sign, no hemotympanum. No cervical spinal tenderness. MSK:Sensation intact in upper and lower extremities. Full active ROM in upper and lower extremities, 5/5 stregnth. (Myke Le) Course Vital Signs 12/30/19 12/30/19 12/30/19 21:43 22:00 23:00 Temperature 97.9 F Pulse Rate 72 66 64 Respiratory 18 18 16 Rate Blood Pressure 145/89 140/88 122/73 O2 Sat by Pulse 98 96 97 Oximetry 12/31/19 00:55 Temperature 98.9 F Pulse Rate 64 Respiratory 16 Rate Blood Pressure 154/90 O2 Sat by Pulse 96 Oximetry Medical Decision Making - Lab Data Result diagrams: 12/30/19 22:13 12/30/19 22:13 - EKG Data -: EKG Interpreted by Me (and Dr. Price ) <Myke Le - Last Filed: 12/31/19 00:25> - Lab Data Result diagrams: 12/30/19 22:13 12/30/19 22:13 <Jesusita Price - Last Filed: 12/31/19 02:56> - Medical Decision Making 79-year-old male patient see for nausea and vomiting. Patient also had some diaphoresis. Patient's vital signs are stable, afebrile. Physical exam did not display acute pathology. Patient was initially vomiting the room. Patient was administered some Benadryl and his symptoms resolved. I investigation revealed mild leukocytosis and mildly elevated troponin. EKG repeat EKG do reveal acute changes including lateral inversions. I recommended patient stay in hospital. I explained in depth his elevated troponin as well as EKG changes or highly suspicious of acute coronary syndrome and that he could be having a heart attack and explained that he needed to stay in hospital. I explained that going home could result in . Patient verbalizes understanding. is also in room with patient and also verbalizes understanding. Patient was seen by Dr. Price who also explained our high concern for an acute cardiac process and patient contniues to refuse to stay in hospital. Will leave AMA. (Myke Le) Patient was initially seen and evaluated by PA. Based on patient's elevated troponin I do feel he needs to be admitted to the hospital for atypical presentation of ACS considering his age and risk factors. This plan was discussed with the patient and at bedside. Patient adamantly declining admission to the hospital. A repeat EKG was obtained which revealed inversion of the T waves in V3-5 which is concerning for an ischemic process. I did discuss this with the patient and his . They made the patient aware that he may be having a heart attack and that if he goes home he could . Patient was able to express understanding of this but continued to adamantly declined admission to the hospital. Patient insisted on going home. Patient's encouraging him to stay, I left the room and gave his approximately 15 minutes to have this discussion with him however upon return she states that she can't change his mind that he understands the risks she understands the risks and the patient wants to be discharged home. The patient has decided to leave against medical advice because he does not wish to stay in the hospital The patient has adequate capacity to make medical decisions. The patient refuses hospital admission and wants to be discharged. The risks have been explained to the patient, including worsening illness, chronic pain, permanent disability and . The benefits of workup/admission have also been explained, including the availability and proximity of nurses, physicians, monitoring, diagnostic testing, treatment and evaluation by commercial census taker The patient was able to understand and state the risks and benefits of hospital admission. This was witnessed by TREMAINE Jolly, and me. The patient the opportunity to ask questions about their medical condition. The patient was treated to the extent that they would allow and knows that they may return for care at any time. (Jesusita Price) - Lab Data Lab Results 12/30/19 12/30/19 12/30/19 Range/Units 22:13 22:13 22:13 WBC 12.6 H (3.8-10.6) k/uL RBC 4.98 (4.30-5.90) m/uL Hgb 15.6 (13.0-17.5) gm/dL Hct 47.6 (39.0-53.0) % MCV 95.6 (80.0-100.0) fL MCH 31.4 (25.0-35.0) pg MCHC 32.8 (31.0-37.0) g/dL RDW 13.7 (11.5-15.5) % Plt Count 165 (150-450) k/uL Neutrophils % 72 % Lymphocytes % 20 % Monocytes % 5 % Eosinophils % 2 % Basophils % 0 % Neutrophils # 9.1 H (1.3-7.7) k/uL Lymphocytes # 2.5 (1.0-4.8) k/uL Monocytes # 0.7 (0-1.0) k/uL Eosinophils # 0.2 (0-0.7) k/uL Basophils # 0.0 (0-0.2) k/uL Sodium 140 (137-145) mmol/L Potassium 3.6 (3.5-5.1) mmol/L Chloride 106 (98-107) mmol/L Carbon Dioxide 26 (22-30) mmol/L Anion Gap 8 mmol/L BUN 22 H (9-20) mg/dL Creatinine 1.03 (0.66-1.25) mg/dL Est GFR (CKD-EPI)AfAm 81 (>60 ml/min/1.73 sqM) Est GFR (CKD-EPI)NonAf 70 (>60 ml/min/1.73 sqM) Glucose 123 H (74-99) mg/dL Plasma Lactic Acid Eitan (0.7-2.0) mmol/L Calcium 9.5 (8.4-10.2) mg/dL Total Bilirubin 0.7 (0.2-1.3) mg/dL AST 29 (17-59) U/L ALT 25 (4-49) U/L Alkaline Phosphatase 73 (38-126) U/L Troponin I (0.000-0.034) ng/mL Total Protein 6.6 (6.3-8.2) g/dL Albumin 3.9 (3.5-5.0) g/dL Lipase 58 (23-300) U/L Urine Color Yellow Urine Appearance Clear (Clear) Urine pH 5.5 (5.0-8.0) Ur Specific [place] 1.020 (1.001-1.035) Urine Protein Negative (Negative) Urine Glucose (UA) Negative (Negative) Urine Ketones Negative (Negative) Urine Blood Negative (Negative) Urine Nitrite Negative (Negative) Urine Bilirubin Negative (Negative) Urine Urobilinogen <2.0 (<2.0) mg/dL Ur Leukocyte Esterase Negative (Negative) 12/30/19 12/30/19 Range/Units 22:13 22:13 WBC (3.8-10.6) k/uL RBC (4.30-5.90) m/uL Hgb (13.0-17.5) gm/dL Hct (39.0-53.0) % MCV (80.0-100.0) fL MCH (25.0-35.0) pg MCHC (31.0-37.0) g/dL RDW (11.5-15.5) % Plt Count (150-450) k/uL Neutrophils % % Lymphocytes % % Monocytes % % Eosinophils % % Basophils % % Neutrophils # (1.3-7.7) k/uL Lymphocytes # (1.0-4.8) k/uL Monocytes # (0-1.0) k/uL Eosinophils # (0-0.7) k/uL Basophils # (0-0.2) k/uL Sodium (137-145) mmol/L Potassium (3.5-5.1) mmol/L Chloride (98-107) mmol/L Carbon Dioxide (22-30) mmol/L Anion Gap mmol/L BUN (9-20) mg/dL Creatinine (0.66-1.25) mg/dL Est GFR (CKD-EPI)AfAm (>60 ml/min/1.73 sqM) Est GFR (CKD-EPI)NonAf (>60 ml/min/1.73 sqM) Glucose (74-99) mg/dL Plasma Lactic Acid Eitan 2.0 (0.7-2.0) mmol/L Calcium (8.4-10.2) mg/dL Total Bilirubin (0.2-1.3) mg/dL AST (17-59) U/L ALT (4-49) U/L Alkaline Phosphatase (38-126) U/L Troponin I 0.037 H* (0.000-0.034) ng/mL Total Protein (6.3-8.2) g/dL Albumin (3.5-5.0) g/dL Lipase (23-300) U/L Urine Color Urine Appearance (Clear) Urine pH (5.0-8.0) Ur Specific [place] (1.001-1.035) Urine Protein (Negative) Urine Glucose (UA) (Negative) Urine Ketones (Negative) Urine Blood (Negative) Urine Nitrite (Negative) Urine Bilirubin (Negative) Urine Urobilinogen (<2.0) mg/dL Ur Leukocyte Esterase (Negative) - EKG Data EKG Comments: 1) Ventricular rate 73, PT interval 172, QRS 172, QT/Qtc 468/515. Normal sinus rhythm, possible atrial enlargement, right bundle branch block. 2) ventricular rate 68,. Full 174, QRS 176, QT/QTc 452/480. Sinus rhythm and premature atrial complexes. New Inversions V4 V5 and V6 and V3. (Myke Le) Disposition Is patient prescribed a controlled substance at d/c from ED?: No <Myke Le - Last Filed: 12/31/19 00:25> Is patient prescribed a controlled substance at d/c from ED?: No <Jesusita Price - Last Filed: 12/31/19 02:56> Clinical Impression: Nausea and vomiting, Elevated troponin, Acute electrocardiogram changes Disposition: Left Against Medical Advice Condition: Undetermined Instructions (If sedation given, give patient instructions): Acute Nausea and Vomiting (ED) Additional Instructions: Follow up with your commercial census taker and PCP tomorrow. Return to ED immediately if any new symptoms develop or if you feel worse in anyway. Referrals: Forest Chauhan MD [STAFF PHYSICIAN] - 1-2 days Tony Sandra DO [Primary Care Provider] - 1-2 days
--- NOTE | 2019-12-31 00:28 | ED ---
Medical Decision Making - Lab Data Result diagrams: 12/30/19 22:13 12/30/19 22:13 Lab Results 12/30/19 12/30/19 12/30/19 Range/Units 22:13 22:13 22:13 WBC 12.6 H (3.8-10.6) k/uL RBC 4.98 (4.30-5.90) m/uL Hgb 15.6 (13.0-17.5) gm/dL Hct 47.6 (39.0-53.0) % MCV 95.6 (80.0-100.0) fL MCH 31.4 (25.0-35.0) pg MCHC 32.8 (31.0-37.0) g/dL RDW 13.7 (11.5-15.5) % Plt Count 165 (150-450) k/uL Neutrophils % 72 % Lymphocytes % 20 % Monocytes % 5 % Eosinophils % 2 % Basophils % 0 % Neutrophils # 9.1 H (1.3-7.7) k/uL Lymphocytes # 2.5 (1.0-4.8) k/uL Monocytes # 0.7 (0-1.0) k/uL Eosinophils # 0.2 (0-0.7) k/uL Basophils # 0.0 (0-0.2) k/uL Sodium 140 (137-145) mmol/L Potassium 3.6 (3.5-5.1) mmol/L Chloride 106 (98-107) mmol/L Carbon Dioxide 26 (22-30) mmol/L Anion Gap 8 mmol/L BUN 22 H (9-20) mg/dL Creatinine 1.03 (0.66-1.25) mg/dL Est GFR (CKD-EPI)AfAm 81 (>60 ml/min/1.73 sqM) Est GFR (CKD-EPI)NonAf 70 (>60 ml/min/1.73 sqM) Glucose 123 H (74-99) mg/dL Plasma Lactic Acid E[place] (0.7-2.0) mmol/L Calcium 9.5 (8.4-10.2) mg/dL Total Bilirubin 0.7 (0.2-1.3) mg/dL AST 29 (17-59) U/L ALT 25 (4-49) U/L Alkaline Phosphatase 73 (38-126) U/L Troponin I (0.000-0.034) ng/mL Total Protein 6.6 (6.3-8.2) g/dL Albumin 3.9 (3.5-5.0) g/dL Lipase 58 (23-300) U/L Urine Color Yellow Urine Appearance Clear (Clear) Urine pH 5.5 (5.0-8.0) Ur Specific [place] 1.020 (1.001-1.035) Urine Protein Negative (Negative) Urine Glucose (UA) Negative (Negative) Urine Ketones Negative (Negative) Urine Blood Negative (Negative) Urine Nitrite Negative (Negative) Urine Bilirubin Negative (Negative) Urine Urobilinogen <2.0 (<2.0) mg/dL Ur Leukocyte Esterase Negative (Negative) 12/30/19 12/30/19 Range/Units 22:13 22:13 WBC (3.8-10.6) k/uL RBC (4.30-5.90) m/uL Hgb (13.0-17.5) gm/dL Hct (39.0-53.0) % MCV (80.0-100.0) fL MCH (25.0-35.0) pg MCHC (31.0-37.0) g/dL RDW (11.5-15.5) % Plt Count (150-450) k/uL Neutrophils % % Lymphocytes % % Monocytes % % Eosinophils % % Basophils % % Neutrophils # (1.3-7.7) k/uL Lymphocytes # (1.0-4.8) k/uL Monocytes # (0-1.0) k/uL Eosinophils # (0-0.7) k/uL Basophils # (0-0.2) k/uL Sodium (137-145) mmol/L Potassium (3.5-5.1) mmol/L Chloride (98-107) mmol/L Carbon Dioxide (22-30) mmol/L Anion Gap mmol/L BUN (9-20) mg/dL Creatinine (0.66-1.25) mg/dL Est GFR (CKD-EPI)AfAm (>60 ml/min/1.73 sqM) Est GFR (CKD-EPI)NonAf (>60 ml/min/1.73 sqM) Glucose (74-99) mg/dL Plasma Lactic Acid Eitan 2.0 (0.7-2.0) mmol/L Calcium (8.4-10.2) mg/dL Total Bilirubin (0.2-1.3) mg/dL AST (17-59) U/L ALT (4-49) U/L Alkaline Phosphatase (38-126) U/L Troponin I 0.037 H* (0.000-0.034) ng/mL Total Protein (6.3-8.2) g/dL Albumin (3.5-5.0) g/dL Lipase (23-300) U/L Urine Color Urine Appearance (Clear) Urine pH (5.0-8.0) Ur Specific [place] (1.001-1.035) Urine Protein (Negative) Urine Glucose (UA) (Negative) Urine Ketones (Negative) Urine Blood (Negative) Urine Nitrite (Negative) Urine Bilirubin (Negative) Urine Urobilinogen (<2.0) mg/dL Ur Leukocyte Esterase (Negative) Disposition Clinical Impression: Nausea and vomiting, Elevated troponin, Acute electrocardiogram changes Disposition: Left Against Medical Advice Condition: Undetermined Instructions (If sedation given, give patient instructions): Acute Nausea and Vomiting (ED) Additional Instructions: Follow up with your bulk sugar handler and PCP tomorrow. Return to ED immediately if any new symptoms develop or if you feel worse in anyway. Is patient prescribed a controlled substance at d/c from ED?: No Referrals: Tony Sandra DO [Primary Care Provider] - 1-2 days Forest Chuahan MD [STAFF PHYSICIAN] - 1-2 days
[2019-12-31 00:52] VITALS: PULSE 64; RESP 16
[2019-12-31 00:57] VITALS: BP 154/90; TEMP 98.9
[2019-12-31] MEDS ORDERED: ASPIRIN 325 MG TAB PO SCH (09:00)
== END 2019-12-31 00:54 | disposition left against medical advice (07) ==
LOC: EC 21:40
DX: R11.2 Nausea with vomiting, unspecified (principal); R79.89 Other specified abnormal findings of blood chemistry; R94.31 Abnormal electrocardiogram [ECG] [EKG]; D72.829 Elevated white blood cell count, unspecified; R61 Generalized hyperhidrosis; E78.5 Hyperlipidemia, unspecified; I10 Essential (primary) hypertension; F32.9 Major depressive disorder, single episode, unspecified; F17.200 Nicotine dependence, unspecified, uncomplicated; Z79.82 Long term (current) use of aspirin; Z79.899 Other long term (current) drug therapy; Z53.20 Procedure and treatment not carried out because of patient's decision for unspecified reasons; Z95.5 Presence of coronary angioplasty implant and graft
CPT/HCPCS: 99285; 96374; 96361; 36415; 93005; 80053; 83605; 83690; 84484; 85025; 81003; 71046; 74018; 70450; J1200

== ENCOUNTER → 2020-01-14 | Day surgery (SDC) | payer BC, MEDICARE ==
[2020-01-11 09:31] VITALS: BMI 29.0
[~2020-01-14] MED LIST changes: +ASPIRIN 325 MG TAB PO ONE; -ASPIRIN 325 MG TAB PO STA; +ATORVASTATIN 80 MG TAB PO ONE; -ATORVASTATIN 80 MG TAB PO STA; +HEPARIN SODIUM 1,000 UN/ML (10ML VL) ONE; +IOPAMIDOL-370 125ML BTL INJ ONE; +LIDOCAINE 1% INJ 10MG/ML (20 ML MDV) ONE; +LIDOCAINE 1% INJ 10MG/ML (20 ML MDV) SQ ONE; +RX INFO: IV CONTRAST WAS GIVEN 1 EACH MISC MISCELLANE PRN; +SODIUM CHLORIDE 0.9% 1,000 ML IV SCH; +VERAPAMIL 2.5 MG/ML 2 ML AMP ONE; +VERAPAMIL SYRINGE (5 MG/10 ML) INTRAARTER ONE; +hydrALAZINE HCL 20 MG/ML 1 ML VIAL IV ONE; +hydrALAZINE HCL 20 MG/ML 1 ML VIAL ONE
[2020-01-14 08:36] VITALS: RESP 18; TEMP 97.8
[2020-01-14] MEDS: MIDAZOLAM 2 MG/2 ML VIAL IV ONE ×2 (09:37→09:41)
--- NOTE | 2020-01-14 12:39 | CC ---
CARDIAC CATHETERIZATION REPORT DATE OF SERVICE: January 14, 2020. PERFORMING PHYSICIAN: Forest Chauhan MD. PROCEDURE PERFORMED: 1. Selective right and left coronary angiogram. 2. Left heart catheterization. INDICATION: This is a 79-year-old gentleman with coronary artery disease and known to have intermediate lesion involving the right coronary artery as well as history of smoking and hypertension and dyslipidemia who was experiencing symptoms of chest discomfort. He unfortunately continues to smoke in spite of multiple attempts of smoking cessation. Because of the symptoms of chest pain were concerning for angina, a heart catheterization was advised. APPROACH: Right radial artery. COMPLICATION: None. LEVEL OF SEDATION: Moderate with sedation length of 13 minutes. PROCEDURE DESCRIPTION: After obtaining an informed consent, the patient was brought to the cardiac quality assurance qa lab analyst. The right radial artery was cannulated using micropuncture technique, the micropuncture wire passed easily. Then I placed a 6-Maltese sheath. I gave the patient 2 mg of verapamil IA and 8000 units of heparin IV. Selective right and left coronary angiogram performed using JR4 and JL3.5 catheters. Left heart catheterization was performed using the JL 23.5 which crossed the aortic valve. The procedure was completed without any complication. SELECTIVE CORONARY ANGIOGRAM: 1. The right coronary artery is a large caliber vessel. It is a dominant vessel. The proximal RCA has mild disease only. The mid RCA has eccentric lesion appeared to be in the range of 30% to 40%. The RCA distally is normal and bifurcates into PDA and PLV branches, both appeared to have mild diffuse disease only. 2. The left main is a large caliber vessel. It is angiographically normal. It bifurcates into LCX and LAD. 3. The LCX is a large caliber vessel. It is a nondominant vessel. The LCX is angiographically normal. In the proximal portion gives rise into a large OM branch which worked as ramus intermedius and appeared to be angiographically normal. 4. The left anterior descending artery: The proximal LAD appeared to have intermediate lesion in the range of 50%. This is by the bifurcation of the first diagonal branch which appeared to be angiographically normal. The mid and distal LAD appeared to be angiographically normal. HEMODYNAMICS: The LVEDP was 18 mmHg without significant gradient across aortic valve. CONCLUSION: 1. Intermediate disease involving the mid RCA and mid LAD. 2. Elevated LVEDP. POSTPROCEDURE MANAGEMENT: 1. Medical treatment. 2. Follow up with the patient. MMODL / IJN: [id number] /
--- NOTE | 2020-01-14 12:47 | LTR ---
DATE OF SERVICE: January 14, 2020. Dear Dr. Sandra: MrShabbir Blanton underwent today heart catheterization and that revealed intermediate disease involving the mid right coronary artery and proximal left anterior descending artery. I advised maximized medical treatment including aggressive cholesterol control as well as smoking cessation. I want to thank you for allowing us to participate in his care and please do not hesitate to call if you have any questions or concerns. Sincerely, MMODL / IJN: [id number] /
[2020-01-14 13:27] VITALS: BP 139/75; PULSE 70
== END ==
LOC: CATHCVL 07:55
PROVIDERS: ATTEND Internal Medicine Interventional Cardiology
DX: I25.110 Atherosclerotic heart disease of native coronary artery with unstable angina pectoris (principal); F17.210 Nicotine dependence, cigarettes, uncomplicated; I10 Essential (primary) hypertension; I42.8 Other cardiomyopathies; E66.9 Obesity, unspecified; E78.5 Hyperlipidemia, unspecified; Z79.82 Long term (current) use of aspirin; Z79.899 Other long term (current) drug therapy; Z68.30 Body mass index [BMI] 30.0-30.9, adult
CPT/HCPCS: 93458; C1769 ×2; C1894; J2250; J0360; J2001; J1644; Q9967

== ENCOUNTER → 2020-06-06 | Outpatient (CLI) | payer MEDICARE ==
--- NOTE | 2020-06-06 13:34 | CT ---
EXAMINATION TYPE: CT brain wo/w con DATE OF EXAM: 06/06/2020 COMPARISON: 12/30/2019 HISTORY: Syncope, weakness and headaches. CT DLP: 2163.2mGycm CONTRAST: CT scan of the head is performed without and with IV Contrast, patient injected with 100 mL of Isovue M300. Unenhanced followed by contrast enhanced CT of the brain is submitted for evaluation. The ventricles basal cisterns and sulci overlying the cerebral convexities restrict moderate enlargement. Periventri cular white matter ischemic demyelination noted. Remote insult left basal ganglia. No intracranial he morrhage seen. There is an enhancing lesion noted measuring 1.2 cm adjacent to the sylvian cistern on the right. There is also an area of abnormal enhancement involving the superior cerebellum measuring approximately 1 cm. IMPRESSION: 1. Nonspecific lesions. MRI of the brain recommended.
== END | disposition home or self-care (01) ==
LOC: RADCTMAIN 11:53
PROVIDERS: ATTEND Family Medicine
DX: G93.9 Disorder of brain, unspecified (principal); G43.909 Migraine, unspecified, not intractable, without status migrainosus
CPT/HCPCS: 82565; 84520; 70470; 36415; Q9967

== ENCOUNTER 2020-06-20 09:16 | Day surgery (SDC) | payer MEDICARE ==
[2020-06-18 09:47] VITALS: BMI 28.3
[~2020-06-20 09:16] MED LIST changes: -ALPRAZolam 0.25 MG TAB PO PRN; -ALPRAZolam 0.5 MG TAB PO PRN; -ASPIRIN 325 MG TAB PO ONE; -ATORVASTATIN 80 MG TAB PO ONE; -HEPARIN SODIUM 1,000 UN/ML (10ML VL) ONE; -IOPAMIDOL-370 125ML BTL INJ ONE; +LACTATED RINGERS 1,000 ML IV SCH; +LIDOCAINE 1% (10MG/ML) FOR IV START INTRADERMA PRN; -LIDOCAINE 1% INJ 10MG/ML (20 ML MDV) ONE; -LIDOCAINE 1% INJ 10MG/ML (20 ML MDV) SQ ONE; -NITROGLYCERIN SL TABS 0.4 MG TAB SUBLINGUAL PRN; -RX INFO: IV CONTRAST WAS GIVEN 1 EACH MISC MISCELLANE PRN; -SODIUM CHLORIDE 0.9% 1,000 ML IV SCH; -SODIUM CHLORIDE 0.9% 1,000 ML in EMPTY BAG 1 BAG IV ONE; -VERAPAMIL 2.5 MG/ML 2 ML AMP ONE; -VERAPAMIL SYRINGE (5 MG/10 ML) INTRAARTER ONE; -hydrALAZINE HCL 20 MG/ML 1 ML VIAL IV ONE; -hydrALAZINE HCL 20 MG/ML 1 ML VIAL ONE
[2020-06-20 09:43] VITALS: RESP 16; TEMP 98.2
[2020-06-20] MEDS ORDERED: hydrALAZINE HCL 20 MG/ML 1 ML VIAL IVP ONE (09:52)
[2020-06-20] MEDS ORDERED: LABETALOL SYRINGE 5 MG/ML IVP ONE (09:57)
[2020-06-20] MEDS ORDERED: PROPOFOL 10 MG/ML 20 ML VIAL IV ONE (10:04)
--- NOTE | 2020-06-20 10:09 | P.GSHP ---
History of Present Illness H&P Date: 06/20/20 79-year-old male presents today for upper and lower endoscopy. He has had recent weight loss. He also has had significant weakness. He denies any hematemesis or blood in his stool. He denies any family history of colon cancer. He has never had an upper endoscopy and has had a lower endoscopy many years ago and does not recall the results. - Review of Systems All systems: negative Past Medical History Past Medical History: COPD, Hyperlipidemia, Hypertension, Prostate Disorder Additional Past Medical History / Comment(s): HAS BEEN LOSING WT, POOR BALANCE, ABD PAIN History of Any Multi-Drug Resistant Organisms: None Reported Past Surgical History: Heart Catheterization, Orthopedic Surgery Additional Past Surgical History / Comment(s): arthroscopic knee surg., cataracts removed, HEART CATH 01/14/20, COLONOSCOPY Past Anesthesia/Blood Transfusion Reactions: No Reported Reaction Smoking Status: Current every day smoker - Past Family History Father Family Medical History: Cancer Medications and Allergies Home Medications Medication Instructions Recorded Confirmed Type Dutasteride/Tamsulosin HCl [Anamika 1 tab PO DAILY 11/21/17 06/20/20 History 0.5-0.4 mg Capsule] Losartan Potassium 100 mg PO DAILY 11/21/17 06/20/20 History Simvastatin [Zocor] 20 mg PO DAILY 11/21/17 06/20/20 History Furosemide [Lasix] 20 mg PO DAILY 10/09/18 06/20/20 History Multivitamins, Thera [Multivitamin 1 tab PO DAILY 10/09/18 06/20/20 History (formulary)] hydrALAZINE HCL [Apresoline] 25 mg PO DAILY 10/09/18 06/20/20 History Carvedilol Phosphate [Carvedilol 40 mg PO DAILY 12/07/18 06/20/20 History ER] Montelukast [Singulair] 10 mg PO DAILY 12/07/18 06/20/20 History DULoxetine HCL [Cymbalta] 30 mg PO DAILY 12/30/19 06/20/20 History DULoxetine HCL [Cymbalta] 60 mg PO DAILY 12/30/19 06/20/20 History Isosorbide Mononitrate [Isosorbide 30 mg PO DAILY 01/11/20 06/20/20 History Mononitrate ER] Allergies Allergy/AdvReac Type Severity Reaction Status Date / Time No Known Allergies Allergy Verified 06/20/20 09:43 Surgical - Exam Osteopathic Statement: *. No significant issues noted on an osteopathic structural exam other than those noted in the History and Physical/Consult. Vital Signs Temp Pulse Resp BP Pulse Ox 98.2 F 78 16 212/107 98 06/20/20 09:31 06/20/20 09:31 06/20/20 09:31 06/20/20 09:31 06/20/20 09:31 - General well developed, well nourished, no distress - Neck trachea midline - Abdomen Abdomen: soft, non tender - Psychiatric oriented to time, oriented to person, oriented to place Assessment and Plan Plan: 79-year-old male with recent weight loss. Plan is for upper and lower endoscopy. Risks, benefits and alternatives were provided to the patient. He did provide consent prior to attending the endoscopy suite.
--- NOTE | 2020-06-20 10:37 | P.PCN ---
Date of Procedure: 06/20/20 Preoperative Diagnosis: Weight loss Postoperative Diagnosis: Gastritis Duodenitis Diverticulosis Procedure(s) Performed: EGD with biopsy Colonoscopy Anesthesia: MAC Surgeon: Jose Alejandro Chan Pathology: other (Biopsies of duodenum, antrum, esophagus) Condition: stable Disposition: same day Indications for Procedure: 79-year-old male with recent weight loss and abdominal pain presents for upper and lower endoscopy. Denies any blood in his stool. Denies any hematemesis. Never has had an upper endoscopy. States his last colonoscopy was many years ago. No known family history of gastrointestinal cancer. Risks, benefits and alternatives were provided to the patient. He did provide consent prior to attending the endoscopy suite. Operative Findings: Gastritis Duodenitis Diverticulosis Description of Procedure: The patient was brought to the endoscopy suite and was placed in left lateral decubitus position and adequate sedation was achieved using conscious sedation. A bite block was placed and an endoscope was placed in the oropharynx and advanced under endoscopic visualization. The endoscope was advanced through the esophagus into the stomach, through the gastric antrum and in through the pylorus. The third portion of the duodenum was visualized. The endoscope was then slowly withdrawn. The first portion of duodenum was noted to have inflammatory changes. Biopsies were taken. The antrum was noted to have inflammatory changes. Biopsies were taken. The gastric cardia distend normally and the gastric folds appeared normal and flattened with insufflation. A retroflexed view of the fundus and GE junction revealed a mild hiatal hernia. The esophagus appeared endoscopically normal biopsies were taken. Excess air was removed and the scope was withdrawn. A digital rectal exam was performed and mild internal hemorrhoids were palpated. An endoscope was then placed in the rectum and advanced to the cecum as identified by landmarks including the appendiceal orifice and the ileocecal valve. The prep was good. The colonoscope was then slowly withdrawn, examining for any mucosal abnormalities. The cecum, ascending, transverse, descending and sigmoid colon were visualized adequately. There were no large neoplastic l esions throughout the colon. There were no obvious polyps noted throughout the colon. Diverticulosis was noted to be scattered throughout the sigmoid and descending colon. Retroflexion was performed in the rectum and internal hemorrhoids were visible. Excess air was removed, the colonoscope withdrawn and the procedure terminated. The patient was then transferred to the recovery unit in stable condition. Repeat colonoscopy should be performed based on symptoms due to the patient's age.
[2020-06-20 10:58] VITALS: BP 147/73; PULSE 81
== END 2020-06-20 11:27 | disposition home or self-care (01) ==
LOC: ORWHC2ENDO 09:16
PROVIDERS: ATTEND Surgery
DX: K57.30 Diverticulosis of large intestine without perforation or abscess without bleeding (principal); K64.8 Other hemorrhoids; K29.50 Unspecified chronic gastritis without bleeding; K29.80 Duodenitis without bleeding; K31.9 Disease of stomach and duodenum, unspecified; K31.89 Other diseases of stomach and duodenum; K20.90 Esophagitis, unspecified without bleeding; K44.9 Diaphragmatic hernia without obstruction or gangrene; I10 Essential (primary) hypertension; E78.5 Hyperlipidemia, unspecified; J44.9 Chronic obstructive pulmonary disease, unspecified; F17.200 Nicotine dependence, unspecified, uncomplicated; F32.9 Major depressive disorder, single episode, unspecified; H91.90 Unspecified hearing loss, unspecified ear; N42.9 Disorder of prostate, unspecified; Z91.19 Patient's noncompliance with other medical treatment and regimen; Z79.899 Other long term (current) drug therapy; Z98.890 Other specified postprocedural states; Z98.41 Cataract extraction status, right eye; Z98.42 Cataract extraction status, left eye
CPT/HCPCS: 88305; 45378; 43239; J0360; J2704

== ENCOUNTER → 2020-06-21 | Outpatient (CLI) | payer MEDICARE ==
--- NOTE | 2020-06-21 11:10 | MR ---
EXAMINATION TYPE: MR brain wo/w con DATE OF EXAM: 06/21/2020 COMPARISON: None HISTORY: Suncope, weakness, headaches, abnormal CT brain. TECHNIQUE: Multiplanar, multisequence images of the brain and brainstem is performed without and with IV contras t, utilizing 9 mL intravenous Gadavist . FINDINGS: The ventricles, basal cisterns and sulci over the convexities are prominent but appropriate for the p atient's age. There is no mass effect or shift of the midline structures. There are multiple remote lacunar infarcts in the left basal ganglia and in the left aspect of the po ns. There is diffuse abnormal increased signal intensity in the white matter both cerebral hemisphere s consistent with chronic ischemic white matter demyelination. On the diffusion-weighted images, there is a small focal acute lacunar infarct adjacent to the atrium of the left lateral ventricle. Following contrast administration, there is no pathological enhancement throughout the brain parenchy ma. The intraorbital contents appear normal and symmetric. Visualized paranasal sinuses are well aerated. There is inflammatory changes in the mastoid air cells left greater than right. IMPRESSION: 1. Small acute lacunar infarct in the white matter of the left cerebral hemisphere adjacent to the at rium of the left lateral ventricle. 2. Significant chronic ischemic changes including ischemic white matter changes and multiple remote l acunar infarcts involving the left genevieve and left basal ganglia. 3. Moderate to marked atrophy appropriate for the patient's age. 4. No mass, or mass effect or pathological enhancement. 5. Inflammatory changes in the mastoid air cells left greater than right.
== END ==
LOC: RADMRIMAIN 09:38
PROVIDERS: ATTEND Family Medicine
DX: I63.81 Other cerebral infarction due to occlusion or stenosis of small artery (principal); I67.82 Cerebral ischemia; G31.9 Degenerative disease of nervous system, unspecified
CPT/HCPCS: 70553; A9585

== ENCOUNTER 2020-07-23 10:28 | Emergency (ER) | payer MEDICARE ==
[2020-07-23 10:33] VITALS: TEMP 97.8
[2020-07-23] MEDS ORDERED: IPRATROPIUM-ALBUTEROL 3 ML NEB INHALATION STA (10:39)
--- NOTE | 2020-07-23 10:42 | ED ---
General Adult HPI - General Chief complaint: Shortness of Breath Stated complaint: SOB Time Seen by Provider: 07/23/20 10:33 Source: patient, family, RN notes reviewed Mode of arrival: wheelchair Limitations: physical limitation - History of Present Illness Initial comments: Patient is a pleasant 79-year-old male presenting to the emergency Department w ith shortness of breath. Majority of history is taken from the . Patient states he feels like he needs something to open up his lungs. states patient of his. A little short of breath over the past couple of days. Patient does have some chronic dyspnea. Patient reportedly has history of COPD. No leg pain or leg swelling. No cough. No fevers. No chest pain. Patient has been immunized for coronavirus. Patient does not normally exert himself much and only walks to and from the bathroom chronically. - Related Data Home Medications Medication Instructions Recorded Confirmed Dutasteride/Tamsulosin HCl [Anamika 1 tab PO DAILY 11/21/17 07/23/20 0.5-0.4 mg Capsule] Simvastatin [Zocor] 20 mg PO DAILY 11/21/17 07/23/20 Furosemide [Lasix] 20 mg PO DAILY 10/09/18 07/23/20 hydrALAZINE HCL [Apresoline] 25 mg PO BID 10/09/18 07/23/20 Carvedilol Phosphate [Carvedilol 40 mg PO DAILY 12/07/18 07/23/20 ER] DULoxetine HCL [Cymbalta] 30 mg PO DAILY 12/30/19 07/23/20 DULoxetine HCL [Cymbalta] 60 mg PO DAILY 12/30/19 07/23/20 Aspirin 81 mg PO DAILY 07/23/20 07/23/20 Clopidogrel Bisulfate [Plavix] 75 mg PO DAILY 07/23/20 07/23/20 Docusate [Colace] 100 mg PO DAILY 07/23/20 07/23/20 Multivit-Min/FA/Lycopen/Lutein 1 tab PO DAILY 07/23/20 07/23/20 [Centrum Silver Men Tablet] Allergies Allergy/AdvReac Type Severity Reaction Status Date / Time No Known Allergies Allergy Verified 07/23/20 12:56 Review of Systems ROS Statement: Those systems with pertinent positive or pertinent negative responses have been documented in the HPI. ROS Other: All systems not noted in ROS Statement are negative. Constitutional: Denies: fever, chills Eyes: Denies: eye pain ENT: Denies: ear pain Respiratory: Reports: dyspnea Cardiovascular: Denies: chest pain Endocrine: Denies: fatigue Gastrointestinal: Denies: abdominal pain Genitourinary: Denies: dysuria Musculoskeletal: Denies: back pain Skin: Denies: rash Neurological: Denies: weakness Past Medical History Past Medical History: Coronary Artery Disease (CAD), CVA/TIA, Hyperlipidemia, Hypertension Additional Past Medical History / Comment(s): and pt are poor historian History of Any Multi-Drug Resistant Organisms: None Reported Past Surgical History: Heart Catheterization, Orthopedic Surgery Additional Past Surgical History / Comment(s): arthroscopic knee surg., cataracts removed Past Anesthesia/Blood Transfusion Reactions: No Reported Reaction Past Psychological History: Depression Smoking Status: Current every day smoker Past Alcohol Use History: None Reported Past Drug Use History: None Reported General Exam Limitations: physical limitation General appearance: alert, in no apparent distress Head exam: Present: normocephalic Eye exam: Present: normal appearance Neck exam: Present: normal inspection Respiratory exam: Present: normal lung sounds bilaterally Cardiovascular Exam: Present: regular rate, normal rhythm GI/Abdominal exam: Present: soft. Absent: tenderness Extremities exam: Present: normal inspection. Absent: pedal edema, calf tenderness Neurological exam: Present: alert Psychiatric exam: Present: normal affect, normal mood Skin exam: Present: normal color Course Vital Signs 07/23/20 07/23/20 07/23/20 10:29 11:00 12:00 Temperature 97.8 F Pulse Rate 53 L 88 83 Respiratory 20 18 18 Rate Blood Pressure 194/104 166/94 155/108 O2 Sat by Pulse 96 94 L 93 L Oximetry 07/23/20 12:29 Temperature Pulse Rate 79 Respiratory 18 Rate Blood Pressure 151/91 O2 Sat by Pulse 94 L Oximetry EKG Findings - EKG Comments: EKG Findings:: Sinus rhythm with a rate of 94. OK 190. QRS 162. QT 426. QTc 532. Left axis. Right bundle branch block. PVCs present. Nonspecific T waves. Medical Decision Making - Medical Decision Making Case was discussed in detail with Dr. Hutchinson, who will admit covering for Dr. Sandra. Patient and family reevaluated and updated. Patient is refusing admission. Patient is alert and oriented 3 and does make his own decisions. is present. Patient is aware of concern regarding progression and possible as well as presence of heart injury/strain. Patient is strongly advised to stay however refuses multiple times even despite family intervention. - Lab Data Result diagrams: 07/23/20 10:47 07/23/20 10:47 Lab Results 07/23/20 07/23/20 07/23/20 Range/Units 10:47 10:47 10:47 WBC 12.4 H (3.8-10.6) k/uL RBC 4.44 (4.30-5.90) m/uL Hgb 14.7 (13.0-17.5) gm/dL Hct 42.0 (39.0-53.0) % MCV 94.6 (80.0-100.0) fL MCH 33.1 (25.0-35.0) pg MCHC 35.0 (31.0-37.0) g/dL RDW 13.6 (11.5-15.5) % Plt Count 144 L (150-450) k/uL MPV 8.8 Neutrophils % 81 % Lymphocytes % 13 % Monocytes % 4 % Eosinophils % 1 % Basophils % 0 % Neutrophils # 10.1 H (1.3-7.7) k/uL Lymphocytes # 1.6 (1.0-4.8) k/uL Monocytes # 0.5 (0-1.0) k/uL Eosinophils # 0.2 (0-0.7) k/uL Basophils # 0.0 (0-0.2) k/uL PT 11.1 (9.0-12.0) sec INR 1.1 (<1.2) APTT 24.8 (22.0-30.0) sec D-Dimer 6.52 H (<0.60) mg/L FEU Sodium 140 (137-145) mmol/L Potassium 3.3 L (3.5-5.1) mmol/L Chloride 106 (98-107) mmol/L Carbon Dioxide 23 (22-30) mmol/L Anion Gap 11 mmol/L BUN 20 (9-20) mg/dL Creatinine 0.96 (0.66-1.25) mg/dL Est GFR (CKD-EPI)AfAm 88 (>60 ml/min/1.73 sqM) Est GFR (CKD-EPI)NonAf 77 (>60 ml/min/1.73 sqM) Glucose 155 H (74-99) mg/dL Plasma Lactic Acid Eitan (0.7-2.0) mmol/L Calcium 9.2 (8.4-10.2) mg/dL Total Bilirubin 0.8 (0.2-1.3) mg/dL AST 27 (17-59) U/L ALT 34 (4-49) U/L Alkaline Phosphatase 73 (38-126) U/L Troponin I (0.000-0.034) ng/mL NT-Pro-B Natriuret Pep pg/mL Total Protein 6.1 L (6.3-8.2) g/dL Albumin 3.6 (3.5-5.0) g/dL Coronavirus (PCR) (Not Detectd) 07/23/20 07/23/20 07/23/20 Range/Units 10:47 10:47 10:47 WBC (3.8-10.6) k/uL RBC (4.30-5.90) m/uL Hgb (13.0-17.5) gm/dL Hct (39.0-53.0) % MCV (80.0-100.0) fL MCH (25.0-35.0) pg MCHC (31.0-37.0) g/dL RDW (11.5-15.5) % Plt Count (150-450) k/uL MPV Neutrophils % % Lymphocytes % % Monocytes % % Eosinophils % % Basophils % % Neutrophils # (1.3-7.7) k/uL Lymphocytes # (1.0-4.8) k/uL Monocytes # (0-1.0) k/uL Eosinophils # (0-0.7) k/uL Basophils # (0-0.2) k/uL PT (9.0-12.0) sec INR (<1.2) APTT (22.0-30.0) sec D-Dimer (<0.60) mg/L FEU Sodium (137-145) mmol/L Potassium (3.5-5.1) mmol/L Chloride (98-107) mmol/L Carbon Dioxide (22-30) mmol/L Anion Gap mmol/L BUN (9-20) mg/dL Creatinine (0.66-1.25) mg/dL Est GFR (CKD-EPI)AfAm (>60 ml/min/1.73 sqM) Est GFR (CKD-EPI)NonAf (>60 ml/min/1.73 sqM) Glucose (74-99) mg/dL Plasma Lactic Acid Eitan 1.6 (0.7-2.0) mmol/L Calcium (8.4-10.2) mg/dL Total Bilirubin (0.2-1.3) mg/dL AST (17-59) U/L ALT (4-49) U/L Alkaline Phosphatase (38-126) U/L Troponin I 0.059 H* (0.000-0.034) ng/mL NT-Pro-B Natriuret Pep 9830 pg/mL Total Protein (6.3-8.2) g/dL Albumin (3.5-5.0) g/dL Coronavirus (PCR) (Not Detectd) 07/23/20 Range/Units 10:47 WBC (3.8-10.6) k/uL RBC (4.30-5.90) m/uL Hgb (13.0-17.5) gm/dL Hct (39.0-53.0) % MCV (80.0-100.0) fL MCH (25.0-35.0) pg MCHC (31.0-37.0) g/dL RDW (11.5-15.5) % Plt Count (150-450) k/uL MPV Neutrophils % % Lymphocytes % % Monocytes % % Eosinophils % % Basophils % % Neutrophils # (1.3-7.7) k/uL Lymphocytes # (1.0-4.8) k/uL Monocytes # (0-1.0) k/uL Eosinophils # (0-0.7) k/uL Basophils # (0-0.2) k/uL PT (9.0-12.0) sec INR (<1.2) APTT (22.0-30.0) sec D-Dimer (<0.60) mg/L FEU Sodium (137-145) mmol/L Potassium (3.5-5.1) mmol/L Chloride (98-107) mmol/L Carbon Dioxide (22-30) mmol/L Anion Gap mmol/L BUN (9-20) mg/dL Creatinine (0.66-1.25) mg/dL Est GFR (CKD-EPI)AfAm (>60 ml/min/1.73 sqM) Est GFR (CKD-EPI)NonAf (>60 ml/min/1.73 sqM) Glucose (74-99) mg/dL Plasma Lactic Acid Eitan (0.7-2.0) mmol/L Calcium (8.4-10.2) mg/dL Total Bilirubin (0.2-1.3) mg/dL AST (17-59) U/L ALT (4-49) U/L Alkaline Phosphatase (38-126) U/L Troponin I (0.000-0.034) ng/mL NT-Pro-B Natriuret Pep pg/mL Total Protein (6.3-8.2) g/dL Albumin (3.5-5.0) g/dL Coronavirus (PCR) Not Detected (Not Detectd) - Radiology Data Radiology results: report reviewed (CT of the chest shows no evidence of pulmona ry embolism. Suspect CHF.), image reviewed (Chest x-ray shows cardiomegaly with small bilateral effusions. Potential for atelectasis or infiltrate.) Disposition Clinical Impression: Congestive heart failure Disposition: Left Against Medical Advice Instructions (If sedation given, give patient instructions): Heart Failure (ER) Additional Instructions: Please follow-up with your knock up assembler and primary care physician tomorrow. It was recommended that you stay in the hospital however you are leaving AGAINST MEDICAL ADVICE. Continue aspirin daily. Please increased your dose of Lasix from 20 mg daily up to 60 mg daily for the next 3 days. Further advice. Cardiology and primary care physician. Please return at any time for worsening symptoms, chest pain or shortness of breath, confusion or any other concerns. Is patient prescribed a controlled substance at d/c from ED?: No Referrals: Tony Sandra DO [Primary Care Provider] - 1-2 days Time of Disposition: 13:39 Decision Time: 12:58
[2020-07-23 11:19] LABS: Basophils % (A) 0 %; Eosinophils # (A) 0.2 k/uL (0-0.7); Eosinophils % (A) 1 %; HGB 14.7 gm/dL (13.0-17.5); Lymphocytes # (A) 1.6 k/uL (1.0-4.8); Lymphocytes % (A) 13 %; MCH 33.1 pg (25.0-35.0); MCV 94.6 fL (80.0-100.0); Mean Platelet Volume 8.8; Monocytes # (A) 0.5 k/uL (0-1.0); Monocytes % (A) 4 %; Neutrophils # (A) 10.1 k/uL (1.3-7.7); Neutrophils % (A) 81 %; Platelet Count 144 k/uL (150-450); RBC 4.44 m/uL (4.30-5.90); RDW 13.6 % (11.5-15.5); WBC 12.4 k/uL (3.8-10.6)
[2020-07-23 11:26] LABS: Albumin 3.6 g/dL (3.5-5.0); Calcium 9.2 mg/dL (8.4-10.2); Potassium 3.3 mmol/L (3.5-5.1); Total Bilirubin 0.8 mg/dL (0.2-1.3); Total Protein 6.1 g/dL (6.3-8.2)
[2020-07-23] MEDS ORDERED: ALBUTEROL HFA INHALER INHALATION STA (11:31)
--- NOTE | 2020-07-23 11:33 | XR ---
EXAMINATION TYPE: XR chest 2V DATE OF EXAM: 07/23/2020 COMPARISON: Chest x-ray December 30, 2019 HISTORY: Shortness of breath. TECHNIQUE: Frontal and lateral views of the chest are obtained. FINDINGS: Mild cardiomegaly redemonstrated. Small to tiny bilateral pleural effusions. Left greater than right bibasilar opacities. Possible overlying loop recorder frontal view less well seen on later al view The osseous structures are intact. IMPRESSION: Possible CHF exacerbation. Stable mild cardiomegaly with small to tiny bilateral pleural effusions on current study. Bibasilar acute atelectasis and/or infiltrate noted.
[2020-07-23 11:34] LABS: INR 1.1 (<1.2); Partial Thromboplastin Time 24.8 sec (22.0-30.0); Prothrombin Time 11.1 sec (9.0-12.0)
[2020-07-23 11:39] LABS: D-Dimer 6.52 mg/L FEU (<0.60)
[2020-07-23 12:04] VITALS: RESP 18
--- NOTE | 2020-07-23 12:52 | CT ---
EXAMINATION TYPE: CT angio chest DATE OF EXAM: 07/23/2020 12:24 PM COMPARISON: CTA chest December 07, 2018. Chest x-ray earlier today. HISTORY: Shortness of breath CT DLP: 435.2 mGycm Automated exposure control for dose reduction was used. CONTRAST: CTA scan of the thorax is performed with IV Contrast, patient injected with 100 mL of Isovue 370, pul monary embolism protocol. MIP images are created and reviewed. FINDINGS: LUNGS: Exam suboptimal as patient unable to hold breath. This limits evaluation for subcentimeter nod ules. Confirmation of small bilateral pleural effusions. Additional areas of mild alveolar and inters titial edema. No pneumothorax. No suspicious focal consolidation MEDIASTINUM: There is satisfactory enhancement of the pulmonary artery and its branches, there is no CT evidence for pulmonary embolism. Satisfactory enhancement of the aorta without aneurysm or dissec tion. Main pulmonary artery dilated at 3.1 cm image 69. There are no greater than 1 cm hilar or medi astinal lymph nodes. No pericardial effusion is seen. Persistent cardiomegaly. Persistent moderate concentric left ventricular hypertrophy. OTHER: Prominent bilateral gynecomastia redemonstrated. Scoliotic curvature with multilevel spurring in the spine. IMPRESSION: No CT evidence for acute pulmonary embolism. Suspect CHF exacerbation as there is cardiom egaly with small bilateral pleural effusions and mild alveolar and interstitial edema noted. Correlat e clinically.
[2020-07-23] MEDS ORDERED: FUROSEMIDE 10 MG/ML 4 ML VIAL IV STA (13:38)
[2020-07-23] MEDS ORDERED: ASPIRIN 81 MG PO STA (13:38)
[2020-07-23 14:18] VITALS: BP 153/97; PULSE 78
== END 2020-07-23 14:19 | disposition left against medical advice (07) ==
LOC: EC 10:28
DX: I11.0 Hypertensive heart disease with heart failure (principal); I50.9 Heart failure, unspecified; E78.5 Hyperlipidemia, unspecified; F17.200 Nicotine dependence, unspecified, uncomplicated; I25.10 Atherosclerotic heart disease of native coronary artery without angina pectoris; J44.9 Chronic obstructive pulmonary disease, unspecified; Z79.82 Long term (current) use of aspirin; Z86.73 Personal history of transient ischemic attack (TIA), and cerebral infarction without residual deficits; Z20.822 Contact with and (suspected) exposure to COVID-19; F32.9 Major depressive disorder, single episode, unspecified
CPT/HCPCS: 36415; 94640; 85379; 83880; 80053; 83605; 84484; 85025; 85610; 85730; 87635; 71046; 71275; 99285; 96374; J1940; Q9967; 93005

== ENCOUNTER 2020-08-28 06:28 | Day surgery (SDC) | payer MEDICARE ==
[2020-08-27 09:05] VITALS: BMI 28.0
[2020-08-28 07:08] VITALS: TEMP 98.1
[2020-08-28] MEDS ORDERED: SODIUM CHLORIDE 0.9% 500 ML 500 ML IV ONE (07:08)
[2020-08-28] MEDS ORDERED: fentaNYL (PF) 50 MCG/ML 2 ML AMP ONE (07:30)
[2020-08-28] MEDS ORDERED: BENZOCAINE SPRAY 1 CAN MUCOUS MEM ONE (07:51)
[2020-08-28] MEDS ORDERED: MIDAZOLAM 2 MG/2 ML VIAL IV ONE ×2 (08:00→08:05)
[2020-08-28 08:11] VITALS: RESP 15
--- NOTE | 2020-08-28 08:44 | ECHOT ---
TRANSESOPHAGEAL ECHOCARDIOGRAM DATE OF SERVICE: August 28, 2020. REASON FOR THE TRANSESOPHAGEAL ECHOCARDIOGRAM: Transient ischemic attack/stroke. COMPLICATION: None. LEVEL OF SEDATION: Moderate with sedation length of 15 minutes. PROCEDURE DESCRIPTION: After obtaining an informed consent, explaining the procedure, benefits, risks, complications and alternatives, the patient was brought to the transesophageal echocardiogram suite. A pulse oximetry and heart rate monitors were attached to the patient prior to the procedure. The patient's throat was sprayed using lidocaine locally. Following that, the patient was turned into left lateral position. A bite guard was placed and the patient was then sedated with the above doses of Versed and fentanyl in divided doses. Following that, the transesophageal echocardiogram probe was advanced through the bite guard into the mid esophagus where 2-D echocardiogram images as well as color Doppler images of various cardiac structures were obtained. We evaluated the interatrial septum using 2-D echocardiogram, color Doppler, and contrast study. The procedure was completed. There were no complications. The procedure was performed using 2D echo, color Doppler, continuous Doppler, and pulse- wave Doppler. FINDINGS: The left ventricular dimension and systolic function appeared to be within normal limits. The right ventricle appeared to be of normal size and function. The left atrium appeared to be dilated. The left atrial appendage was not well visualized. The aortic valve appeared to be trileaflet valve without stenosis and with mild insufficiency. The mitral valve seems to be normal with mild to moderate MR. The interatrial septum appeared to be intact. The tricuspid valve appeared to be within normal limits. CONCLUSION: 1. No evidence of cardiac source of embolization. 2. Intact interatrial septum without any evidence of shunt. 3. Poorly visualized left atrial appendage. 4. Normal left ventricular dimension and systolic function. 5. Normal right ventricular dimension and systolic function. 6. Aortic sclerosis without stenosis with mild insufficiency. 7. Thickened mitral valve leaflets with mild mitral regurgitation. 8. Normal tricuspid valve and pulmonic. MMODL / IJN: [id number] /
[2020-08-28 09:14] VITALS: BP 177/87; PULSE 74
== END 2020-08-28 09:25 | disposition home or self-care (01) ==
LOC: CATHCVL 06:28
PROVIDERS: ATTEND Internal Medicine Interventional Cardiology
DX: I34.0 Nonrheumatic mitral (valve) insufficiency (principal); I25.10 Atherosclerotic heart disease of native coronary artery without angina pectoris; F17.210 Nicotine dependence, cigarettes, uncomplicated; E78.5 Hyperlipidemia, unspecified; I11.0 Hypertensive heart disease with heart failure; I50.9 Heart failure, unspecified; I49.3 Ventricular premature depolarization; I47.1 Supraventricular tachycardia; I42.8 Other cardiomyopathies; Z86.73 Personal history of transient ischemic attack (TIA), and cerebral infarction without residual deficits; Z79.899 Other long term (current) drug therapy; Z79.02 Long term (current) use of antithrombotics/antiplatelets
CPT/HCPCS: 93312; 93320; 93325; 87635; J2250

== ENCOUNTER → 2020-09-02 | Outpatient (CLI) | payer MEDICARE ==
--- NOTE | 2020-09-02 14:04 | MR ---
EXAMINATION TYPE: MR angio head wo/neck wo/w con DATE OF EXAM: 09/02/2020 1:47 PM COMPARISON: NONE HISTORY: CVA, left and right side weakness. Three-dimensional [id number] intracranial MRA was performed with multiple intensity projection im ages submitted and source data reviewed at the workstation. The vertebrobasilar system as well as intracranial portions of the internal carotid arteries and thei r major tributaries are patent. I do not see evidence for sizable aneurysm or vascular malformation. IMPRESSION: Normal study. EXAMINATION TYPE: MR angio head wo/neck wo/w con DATE OF EXAM: 09/02/2020 1:47 PM COMPARISON: NONE HISTORY: CVA, left and right side weakness. Three-dimensional [id number] cervical carotid MRA was performed with multiple intensity projectio n images submitted and source data reviewed at the workstation. Right carotid system: There is mild plaque seen about the common carotid artery. Mild plaque is also seen at the origin and proximal aspect of the right internal carotid artery. Stenosis is estimated at less than 50%. No hemodynamically significant stenosis is appreciated. Right external carotid ar griselda right vertebral artery are patent. Left carotid system: Mild plaque involving the left common carotid artery. Minimal to mild plaque or igin left ICA. No hemodynamically significant stenosis is appreciated. External carotid artery and the left vertebral artery are patent. IMPRESSION: 1. No hemodynamically significant stenosis is appreciated at this time.
== END | disposition home or self-care (01) ==
LOC: RADMRIMAIN 12:29
PROVIDERS: ATTEND Psychiatry & Neurology Neurology
DX: I63.9 Cerebral infarction, unspecified (principal)
CPT/HCPCS: 70544; 70549; A9585

== ENCOUNTER 2020-12-08 02:44 | Emergency (ER) | payer MEDICARE ==
[2020-12-08 02:51] VITALS: TEMP 98
[2020-12-08 03:19] LABS: Basophils # (A) 0.1 k/uL (0-0.2); Basophils % (A) 0 %; Eosinophils # (A) 0.5 k/uL (0-0.7); Eosinophils % (A) 3 %; HGB 14.2 gm/dL (13.0-17.5); Lymphocytes # (A) 3.1 k/uL (1.0-4.8); Lymphocytes % (A) 17 %; MCH 32.4 pg (25.0-35.0); MCHC 33.8 g/dL (31.0-37.0); MCV 95.7 fL (80.0-100.0); Mean Platelet Volume 8.6; Monocytes # (A) 0.7 k/uL (0-1.0); Monocytes % (A) 4 %; Neutrophils # (A) 13.5 k/uL (1.3-7.7); Neutrophils % (A) 75 %; Platelet Count 208 k/uL (150-450); RBC 4.38 m/uL (4.30-5.90); RDW 14.1 % (11.5-15.5); WBC 17.9 k/uL (3.8-10.6)
[2020-12-08] MEDS ORDERED: NITROGLYCERIN SL TABS 0.4 MG TAB SUBLINGUAL STA (03:23)
[2020-12-08] MEDS ORDERED: MORPHINE SULFATE 4 MG/ML SYRINGE IV STA (03:23)
--- NOTE | 2020-12-08 03:29 | XR ---
EXAMINATION TYPE: XR chest 1V portable DATE OF EXAM: 12/08/2020 COMPARISON: 07/23/2020 HISTORY: Short of breath TECHNIQUE: FINDINGS: There is no heart failure nor confluent pneumonic infiltrate. Costophrenic angles are clear . There is minimal linear density right lung base. There are chest leads. There is no pleural effusio n. IMPRESSION: Subsegmental atelectasis right lung base. No heart failure. Chest overall slightly improv ed compared to old exam.
[2020-12-08 03:45] LABS: Albumin 3.9 g/dL (3.5-5.0); Calcium 9.4 mg/dL (8.4-10.2); Potassium 3.9 mmol/L (3.5-5.1); Total Bilirubin 0.4 mg/dL (0.2-1.3); Total Protein 6.6 g/dL (6.3-8.2)
[2020-12-08 03:51] VITALS: RESP 18
[2020-12-08 04:10] LABS: Appearance,Urine Clear (Clear); Bilirubin,Urine Negative (Negative); Blood,Urine Negative (Negative); Color,Urine Yellow; Glucose,Urine (UA) Negative (Negative); Ketones,Urine Negative (Negative); Leukocyte Esterase,Urine Negative (Negative); Nitrite,Urine Negative (Negative); PH, Urine 6.5 (5.0-8.0); Protein,Urine Negative (Negative); Specific Gravity,Urine 1.017 (1.001-1.035); Urobilinogen,Urine <2.0 mg/dL (<2.0)
[2020-12-08] MEDS ORDERED: FUROSEMIDE 10 MG/ML 4 ML VIAL IV STA (05:01)
[2020-12-08] MEDS ORDERED: FUROSEMIDE 40 MG TAB PO STA (05:09)
--- NOTE | 2020-12-08 05:10 | ED ---
SOB HPI - General Chief Complaint: Shortness of Breath Stated Complaint: SHANIKA Time Seen by Provider: 12/08/20 02:57 Source: patient, family Mode of arrival: ambulatory Limitations: no limitations - History of Present Illness Initial Comments: This patient is 80-year-old man who states that he is having some chest tightness and shortness of breath. The patient states that his symptoms started probably just before midnight. He was trying to sleep. Patient does note that symptoms are worse lying flat and better sitting upright. Patient has not had f ever or chills. No productive cough. No leg pain or swelling. No change in urination or bowel movements. MD Complaint: shortness of breath, chest pain Onset/Timin -: minutes(s) Severity: mild Quality: other (Tight) Consistency: constant Improves With: upright position Worsens With: lying flat Known History Of: congestive heart failure Associated Symptoms: denies other symptoms Treatments Prior to Arrival: none - Related Data Home Oxygen Therapy: No Home Medications Medication Instructions Recorded Confirmed Dutasteride/Tamsulosin HCl [Anamika 1 tab PO DAILY 11/21/17 08/28/20 0.5-0.4 mg Capsule] Simvastatin [Zocor] 20 mg PO DAILY 11/21/17 08/28/20 Furosemide [Lasix] 20 mg PO DAILY 10/09/18 08/28/20 hydrALAZINE HCL [Apresoline] 25 mg PO BID 10/09/18 08/28/20 Carvedilol Phosphate [Carvedilol 40 mg PO DAILY 12/07/18 08/28/20 ER] DULoxetine HCL [Cymbalta] 30 mg PO DAILY 12/30/19 08/28/20 DULoxetine HCL [Cymbalta] 60 mg PO DAILY 12/30/19 08/28/20 Aspirin 81 mg PO DAILY 07/23/20 08/28/20 Clopidogrel Bisulfate [Plavix] 75 mg PO DAILY 07/23/20 08/28/20 Multivit-Min/FA/Lycopen/Lutein 1 tab PO DAILY 07/23/20 08/28/20 [Centrum Silver Men Tablet] Spironolactone [Aldactone] 25 mg PO DAILY 08/27/20 08/28/20 Potassium Gluconate [Potassium 99 mg PO DAILY 08/28/20 08/28/20 Gluconate ER] Allergies Allergy/AdvReac Type Severity Reaction Status Date / Time No Known Allergies Allergy Verified 12/08/20 02:51 Review of Systems ROS Statement: Those systems with pertinent positive or pertinent negative responses have been documented in the HPI. ROS Other: All systems not noted in ROS Statement are negative. Constitutional: Denies: fever, chills Respiratory: Reports: dyspnea. Denies: cough, wheezes, hemoptysis Cardiovascular: Reports: chest pain, orthopnea. Denies: palpitations, edema, syncope Gastrointestinal: Denies: abdominal pain, vomiting, diarrhea, constipation, melena, hematochezia Genitourinary: Denies: dysuria, hematuria Musculoskeletal: Denies: back pain Skin: Denies: rash Neurological: Denies: headache, weakness, numbness Past Medical History Past Medical History: Coronary Artery Disease (CAD), COPD, CVA/TIA, Hyperlipidemia, Hypertension, Osteoarthritis (OA) Additional Past Medical History / Comment(s): some TIA's per spouse seen on CT scan-is seeing a neurologist, SOB w/exertion recently, frequent back pain, fully vaccinated History of Any Multi-Drug Resistant Organisms: None Reported Past Surgical History: Heart Catheterization, Orthopedic Surgery Additional Past Surgical History / Comment(s): arthroscopic knee surg., cataracts removed Past Anesthesia/Blood Transfusion Reactions: No Reported Reaction Past Psychological History: Depression Smoking Status: Current every day smoker Past Alcohol Use History: None Reported Past Drug Use History: None Reported General Exam Limitations: no limitations General appearance: alert, in no apparent distress Head exam: Present: atraumatic, normocephalic Eye exam: Present: normal appearance. Absent: scleral icterus, conjunctival injection ENT exam: Present: normal oropharynx Neck exam: Present: normal inspection Respiratory exam: Present: respiratory distress (Mild tachypnea), rales (Bilate ral bases). Absent: wheezes, rhonchi, stridor, accessory muscle use, decreased breath sounds Cardiovascular Exam: Present: regular rate, normal rhythm, systolic murmur, gallop. Absent: diastolic murmur, rubs GI/Abdominal exam: Present: soft. Absent: distended, tenderness, guarding, rebound, rigid, mass Extremities exam: Present: normal inspection, normal capillary refill. Absent: pedal edema, calf tenderness Back exam: Present: normal inspection. Absent: CVA tenderness (R), CVA tenderness (L) Neurological exam: Present: alert Skin exam: Present: warm, dry, intact, normal color. Absent: rash Course Vital Signs 12/08/20 12/08/20 12/08/20 02:46 03:07 03:30 Temperature 98 F Pulse Rate 92 91 Pulse Rate [ 90 Crew Chief ] Respiratory 24 16 Rate Blood Pressure 173/93 175/102 O2 Sat by Pulse 97 97 Oximetry 12/08/20 12/08/20 12/08/20 03:50 04:30 05:12 Temperature Pulse Rate 90 89 90 Pulse Rate [ Crew Chief ] Respiratory 18 18 18 Rate Blood Pressure 116/79 164/92 159/92 O2 Sat by Pulse 98 98 97 Oximetry Medical Decision Making - Medical Decision Making Patient is 80-year-old man presenting with onset of dyspnea tonight. Also component of orthopnea when he was trying to sleep. Following medications the patient is feeling better. I did reevaluate him after his labs were complete and he continues to feel well. I offered to admit to have serial cardiac enzymes, telemetry monitoring, cardiology consultation and additional treatment, but the patient is declining this. He states that he feels well and wants to go home. Understand that there is a small risk of missed cardiac event. They will return if there are any symptoms recur or any new symptoms that develop. The patient otherwise going to have close follow-up with his physician. - Lab Data Result diagrams: 12/08/20 03:10 12/08/20 03:10 Lab Results 12/08/20 12/08/20 12/08/20 Range/Units 03:10 03:10 03:10 WBC 17.9 H (3.8-10.6) k/uL RBC 4.38 (4.30-5.90) m/uL Hgb 14.2 (13.0-17.5) gm/dL Hct 42.0 (39.0-53.0) % MCV 95.7 (80.0-100.0) fL MCH 32.4 (25.0-35.0) pg MCHC 33.8 (31.0-37.0) g/dL RDW 14.1 (11.5-15.5) % Plt Count 208 (150-450) k/uL MPV 8.6 Neutrophils % 75 % Lymphocytes % 17 % Monocytes % 4 % Eosinophils % 3 % Basophils % 0 % Neutrophils # 13.5 H (1.3-7.7) k/uL Lymphocytes # 3.1 (1.0-4.8) k/uL Monocytes # 0.7 (0-1.0) k/uL Eosinophils # 0.5 (0-0.7) k/uL Basophils # 0.1 (0-0.2) k/uL Sodium 138 (137-145) mmol/L Potassium 3.9 (3.5-5.1) mmol/L Chloride 107 (98-107) mmol/L Carbon Dioxide 22 (22-30) mmol/L Anion Gap 9 mmol/L BUN 22 H (9-20) mg/dL Creatinine 1.17 (0.66-1.25) mg/dL Est GFR (CKD-EPI)AfAm 69 (>60 ml/min/1.73 sqM) Est GFR (CKD-EPI)NonAf 59 (>60 ml/min/1.73 sqM) Glucose 103 H (74-99) mg/dL Plasma Lactic Acid Eitan (0.7-2.0) mmol/L Calcium 9.4 (8.4-10.2) mg/dL Magnesium 2.0 (1.6-2.3) mg/dL Total Bilirubin 0.4 (0.2-1.3) mg/dL AST 27 (17-59) U/L ALT 16 (4-49) U/L Alkaline Phosphatase 98 (38-126) U/L Troponin I (0.000-0.034) ng/mL NT-Pro-B Natriuret Pep pg/mL Total Protein 6.6 (6.3-8.2) g/dL Albumin 3.9 (3.5-5.0) g/dL Urine Color Yellow Urine Appearance Clear (Clear) Urine pH 6.5 (5.0-8.0) Ur Specific [place] 1.017 (1.001-1.035) Urine Protein Negative (Negative) Urine Glucose (UA) Negative (Negative) Urine Ketones Negative (Negative) Urine Blood Negative (Negative) Urine Nitrite Negative (Negative) Urine Bilirubin Negative (Negative) Urine Urobilinogen <2.0 (<2.0) mg/dL Ur Leukocyte Esterase Negative (Negative) 12/08/20 12/08/20 12/08/20 Range/Units 03:10 03:10 03:10 WBC (3.8-10.6) k/uL RBC (4.30-5.90) m/uL Hgb (13.0-17.5) gm/dL Hct (39.0-53.0) % MCV (80.0-100.0) fL MCH (25.0-35.0) pg MCHC (31.0-37.0) g/dL RDW (11.5-15.5) % Plt Count (150-450) k/uL MPV Neutrophils % % Lymphocytes % % Monocytes % % Eosinophils % % Basophils % % Neutrophils # (1.3-7.7) k/uL Lymphocytes # (1.0-4.8) k/uL Monocytes # (0-1.0) k/uL Eosinophils # (0-0.7) k/uL Basophils # (0-0.2) k/uL Sodium (137-145) mmol/L Potassium (3.5-5.1) mmol/L Chloride (98-107) mmol/L Carbon Dioxide (22-30) mmol/L Anion Gap mmol/L BUN (9-20) mg/dL Creatinine (0.66-1.25) mg/dL Est GFR (CKD-EPI)AfAm (>60 ml/min/1.73 sqM) Est GFR (CKD-EPI)NonAf (>60 ml/min/1.73 sqM) Glucose (74-99) mg/dL Plasma Lactic Acid Eitan 1.2 (0.7-2.0) mmol/L Calcium (8.4-10.2) mg/dL Magnesium (1.6-2.3) mg/dL Total Bilirubin (0.2-1.3) mg/dL AST (17-59) U/L ALT (4-49) U/L Alkaline Phosphatase (38-126) U/L Troponin I 0.031 (0.000-0.034) ng/mL NT-Pro-B Natriuret Pep 3560 pg/mL Total Protein (6.3-8.2) g/dL Albumin (3.5-5.0) g/dL Urine Color Urine Appearance (Clear) Urine pH (5.0-8.0) Ur Specific [place] (1.001-1.035) Urine Protein (Negative) Urine Glucose (UA) (Negative) Urine Ketones (Negative) Urine Blood (Negative) Urine Nitrite (Negative) Urine Bilirubin (Negative) Urine Urobilinogen (<2.0) mg/dL Ur Leukocyte Esterase (Negative) Disposition Clinical Impression: Congestive heart failure Disposition: HOME SELF-CARE Condition: Fair Instructions (If sedation given, give patient instructions): Heart Failure (DC) Is patient prescribed a controlled substance at d/c from ED?: No Referrals: Gerard Mcelroy MD [Primary Care Provider] - 1-2 days
[2020-12-08 05:13] VITALS: BP 159/92; PULSE 90
== END 2020-12-08 05:35 | disposition home or self-care (01) ==
LOC: EC 02:44
DX: I11.0 Hypertensive heart disease with heart failure (principal); I50.9 Heart failure, unspecified; I25.10 Atherosclerotic heart disease of native coronary artery without angina pectoris; J44.9 Chronic obstructive pulmonary disease, unspecified; E78.5 Hyperlipidemia, unspecified; M19.90 Unspecified osteoarthritis, unspecified site; F32.9 Major depressive disorder, single episode, unspecified; F17.200 Nicotine dependence, unspecified, uncomplicated; Z86.73 Personal history of transient ischemic attack (TIA), and cerebral infarction without residual deficits; Z79.82 Long term (current) use of aspirin
CPT/HCPCS: 36415; 71045; 80053; 81003; 83605; 83735; 83880; 84484; 85025; 93005; 96374; 99285

== ENCOUNTER 2020-12-27 11:33 | Emergency (ER) | payer MEDICARE ==
[2020-12-27 11:51] VITALS: BP 126/80; PULSE 83; RESP 22; TEMP 99.8
--- NOTE | 2020-12-27 13:40 | XR ---
EXAMINATION TYPE: XR chest 2V DATE OF EXAM: 12/27/2020 COMPARISON: 12/08/2020 HISTORY: 80 year-old male shortness of breath, difficulty breathing TECHNIQUE: AP and lateral views FINDINGS: Heart limits of normal in size. Increased patchy opacity partially silhouetting the left heart margin . No sizable effusion is seen. IMPRESSION: New inferior lingular atelectasis versus pneumonia partially silhouetting the left heart margin. Foll ow-up after potential treatment to ensure clearance.
[2020-12-27 13:57] LABS: Basophils # (A) 0.1 k/uL (0-0.2); Basophils % (A) 0 %; Eosinophils # (A) 0.2 k/uL (0-0.7); Eosinophils % (A) 2 %; HCT 34.9 % (39.0-53.0); HGB 11.5 gm/dL (13.0-17.5); Lymphocytes # (A) 2.4 k/uL (1.0-4.8); Lymphocytes % (A) 20 %; MCH 30.8 pg (25.0-35.0); MCHC 32.9 g/dL (31.0-37.0); MCV 93.5 fL (80.0-100.0); Mean Platelet Volume 8.2; Monocytes % (A) 8 %; Neutrophils # (A) 8.6 k/uL (1.3-7.7); Neutrophils % (A) 69 %; Platelet Count 294 k/uL (150-450); RBC 3.73 m/uL (4.30-5.90); RDW 12.9 % (11.5-15.5); WBC 12.4 k/uL (3.8-10.6)
[2020-12-27 14:05] LABS: Calcium 8.8 mg/dL (8.4-10.2); Potassium 3.8 mmol/L (3.5-5.1); Total Bilirubin 0.7 mg/dL (0.2-1.3); Total Protein 5.9 g/dL (6.3-8.2)
[2020-12-27 14:10] LABS: Partial Thromboplastin Time 26.5 sec (22.0-30.0); Prothrombin Time 10.8 sec (9.0-12.0)
[2020-12-27] MEDS ORDERED: AZITHROMYCIN 500 MG in SODIUM CHLORIDE 0.9% 250 ML IVPB STA (15:02)
[2020-12-27] MEDS ORDERED: cefTRIAXone IN SWFI 1,000 MG/10 ML SYRINGE IVP STA (15:02)
--- NOTE | 2020-12-27 15:41 | ED ---
SOB HPI - General Chief Complaint: Shortness of Breath Stated Complaint: SOB Source: patient Mode of arrival: ambulatory Limitations: no limitations - History of Present Illness Initial Comments: 80-year-old male past history of congestive heart failure, hypertension, COPD who presents to the emergency department for shortness of breath. is at bedside and provides majority history. States that the patient has had some shortness of breath since December 08. He was seen in the emergency department and was told that it was his heart failure. He doubled up on his lasix and he did have some improvement. The patient then began having increasing shortness of breath with fatigue starting . No sick contacts of similar symptoms. Patient denies fevers, chills or cough. He is Covid vaccinated. He denies chest pain. Denies worsening lower extremity swelling. Denies abdominal pain. No alleviating, precipitating or modifying factors - Related Data Home Medications Medication Instructions Recorded Confirmed Dutasteride/Tamsulosin HCl [Anamika 1 tab PO DAILY 11/21/17 12/27/20 0.5-0.4 mg Capsule] Simvastatin [Zocor] 20 mg PO DAILY 11/21/17 12/27/20 Furosemide [Lasix] 20 mg PO DAILY 10/09/18 12/27/20 hydrALAZINE HCL [Apresoline] 25 mg PO BID 10/09/18 12/27/20 Carvedilol Phosphate [Carvedilol 40 mg PO DAILY 12/07/18 12/27/20 ER] DULoxetine HCL [Cymbalta] 30 mg PO DAILY 12/30/19 12/27/20 DULoxetine HCL [Cymbalta] 60 mg PO DAILY 12/30/19 12/27/20 Aspirin 81 mg PO DAILY 07/23/20 12/27/20 Clopidogrel Bisulfate [Plavix] 75 mg PO DAILY 07/23/20 12/27/20 Multivit-Min/FA/Lycopen/Lutein 1 tab PO DAILY 07/23/20 12/27/20 [Centrum Silver Men Tablet] Spironolactone [Aldactone] 25 mg PO DAILY 08/27/20 12/27/20 Albuterol Inhaler [Ventolin Hfa 2 puff INHALATION RT-Q4H PRN 12/27/20 12/27/20 Inhaler] Cyanocobalamin (Vitamin B-12) 1,000 mcg PO DAILY 12/27/20 12/27/20 [Vitamin B-12] Folic Acid 0.8 mg PO DAILY 12/27/20 12/27/20 Losartan Potassium 100 mg PO DAILY 12/27/20 12/27/20 Nicotine 21Mg/24Hr Patch [Habitrol] 1 patch TRANSDERM DAILY PRN 12/27/20 12/27/20 Previous Rx's Medication Instructions Recorded Albuterol Inhaler [Ventolin Hfa 2 puff INHALATION RT-QID #8 gm 12/27/20 Inhaler] Levofloxacin [Levaquin] 750 mg PO DAILY 1 Days #5 tab 12/27/20 Allergies Allergy/AdvReac Type Severity Reaction Status Date / Time alprazolam [From Xanax] AdvReac WEAKNESS Verified 12/27/20 13:56 Review of Systems ROS Statement: Those systems with pertinent positive or pertinent negative responses have been documented in the HPI. ROS Other: All systems not noted in ROS Statement are negative. Past Medical History Past Medical History: Coronary Artery Disease (CAD), COPD, CVA/TIA, Hyperlipidemia, Hypertension, Osteoarthritis (OA) Additional Past Medical History / Comment(s): some TIA's per spouse seen on CT scan-is seeing a neurologist, SOB w/exertion recently, frequent back pain, fully vaccinated History of Any Multi-Drug Resistant Organisms: None Reported Past Surgical History: Heart Catheterization, Orthopedic Surgery Additional Past Surgical History / Comment(s): arthroscopic knee surg., cataracts removed Past Anesthesia/Blood Transfusion Reactions: No Reported Reaction Past Psychological History: Depression Smoking Status: Current every day smoker Past Alcohol Use History: None Reported Past Drug Use History: None Reported General Exam Limitations: no limitations Course Vital Signs 12/27/20 11:49 Temperature 99.8 F H Pulse Rate 83 Respiratory 22 Rate Blood Pressure 126/80 O2 Sat by Pulse 94 L Oximetry Medical Decision Making - Medical Decision Making Upon arrival patient was placed into room 10. A thorough history and physical exam was performed. IV is established. Laboratory studies are conducted and the patient went for chest x-ray. Covid is performed and is negative. Laboratory studies reveal a BNP of 4130. Chest x-ray demonstrates a possible lingular infiltrate. He does have a temp of 99.8 with a 94% pulse ox. Patient is reevaluated and continues to demonstrate no signs of respiratory distress. He is requesting to go home at this time. He is given a dose of Rocephin and azithromycin. Patient will be discharged home on Levaquin for 5 days. Instructed to take the medication starting tomorrow. I will also refill his albuterol inhaler. He is instructed follow up with his primary care doctor in 2-4 days. If he has any new or worsening symptoms he needs return to the emergency department immediately. Patient agreed to this was given written and verbal discharge instructions and discharged home in stable condition - Lab Data Result diagrams: 12/27/20 13:44 12/27/20 13:44 Lab Results 12/27/20 12/27/20 12/27/20 Range/Units 11:55 13:44 13:44 WBC 12.4 H (3.8-10.6) k/uL RBC 3.73 L (4.30-5.90) m/uL Hgb 11.5 L (13.0-17.5) gm/dL Hct 34.9 L (39.0-53.0) % MCV 93.5 (80.0-100.0) fL MCH 30.8 (25.0-35.0) pg MCHC 32.9 (31.0-37.0) g/dL RDW 12.9 (11.5-15.5) % Plt Count 294 (150-450) k/uL MPV 8.2 Neutrophils % 69 % Lymphocytes % 20 % Monocytes % 8 % Eosinophils % 2 % Basophils % 0 % Neutrophils # 8.6 H (1.3-7.7) k/uL Lymphocytes # 2.4 (1.0-4.8) k/uL Monocytes # 1.0 (0-1.0) k/uL Eosinophils # 0.2 (0-0.7) k/uL Basophils # 0.1 (0-0.2) k/uL PT 10.8 (9.0-12.0) sec INR 1.0 (<1.2) APTT 26.5 (22.0-30.0) sec Sodium (137-145) mmol/L Potassium (3.5-5.1) mmol/L Chloride (98-107) mmol/L Carbon Dioxide (22-30) mmol/L Anion Gap mmol/L BUN (9-20) mg/dL Creatinine (0.66-1.25) mg/dL Est GFR (CKD-EPI)AfAm (>60 ml/min/1.73 sqM) Est GFR (CKD-EPI)NonAf (>60 ml/min/1.73 sqM) Glucose (74-99) mg/dL Plasma Lactic Acid Eitan (0.7-2.0) mmol/L Calcium (8.4-10.2) mg/dL Magnesium (1.6-2.3) mg/dL Total Bilirubin (0.2-1.3) mg/dL AST (17-59) U/L ALT (4-49) U/L Alkaline Phosphatase (38-126) U/L Troponin I (0.000-0.034) ng/mL NT-Pro-B Natriuret Pep pg/mL Total Protein (6.3-8.2) g/dL Albumin (3.5-5.0) g/dL Coronavirus (PCR) Not Detected (Not Detectd) 12/27/20 12/27/20 12/27/20 Range/Units 13:44 13:44 13:44 WBC (3.8-10.6) k/uL RBC (4.30-5.90) m/uL Hgb (13.0-17.5) gm/dL Hct (39.0-53.0) % MCV (80.0-100.0) fL MCH (25.0-35.0) pg MCHC (31.0-37.0) g/dL RDW (11.5-15.5) % Plt Count (150-450) k/uL MPV Neutrophils % % Lymphocytes % % Monocytes % % Eosinophils % % Basophils % % Neutrophils # (1.3-7.7) k/uL Lymphocytes # (1.0-4.8) k/uL Monocytes # (0-1.0) k/uL Eosinophils # (0-0.7) k/uL Basophils # (0-0.2) k/uL PT (9.0-12.0) sec INR (<1.2) APTT (22.0-30.0) sec Sodium 135 L (137-145) mmol/L Potassium 3.8 (3.5-5.1) mmol/L Chloride 104 (98-107) mmol/L Carbon Dioxide 23 (22-30) mmol/L Anion Gap 8 mmol/L BUN 18 (9-20) mg/dL Creatinine 1.04 (0.66-1.25) mg/dL Est GFR (CKD-EPI)AfAm 80 (>60 ml/min/1.73 sqM) Est GFR (CKD-EPI)NonAf 69 (>60 ml/min/1.73 sqM) Glucose 105 H (74-99) mg/dL Plasma Lactic Acid Eitan 0.9 (0.7-2.0) mmol/L Calcium 8.8 (8.4-10.2) mg/dL Magnesium 2.0 (1.6-2.3) mg/dL Total Bilirubin 0.7 (0.2-1.3) mg/dL AST 24 (17-59) U/L ALT 17 (4-49) U/L Alkaline Phosphatase 100 (38-126) U/L Troponin I 0.022 (0.000-0.034) ng/mL NT-Pro-B Natriuret Pep pg/mL Total Protein 5.9 L (6.3-8.2) g/dL Albumin 3.0 L (3.5-5.0) g/dL Coronavirus (PCR) (Not Detectd) 12/27/20 Range/Units 13:44 WBC (3.8-10.6) k/uL RBC (4.30-5.90) m/uL Hgb (13.0-17.5) gm/dL Hct (39.0-53.0) % MCV (80.0-100.0) fL MCH (25.0-35.0) pg MCHC (31.0-37.0) g/dL RDW (11.5-15.5) % Plt Count (150-450) k/uL MPV Neutrophils % % Lymphocytes % % Monocytes % % Eosinophils % % Basophils % % Neutrophils # (1.3-7.7) k/uL Lymphocytes # (1.0-4.8) k/uL Monocytes # (0-1.0) k/uL Eosinophils # (0-0.7) k/uL Basophils # (0-0.2) k/uL PT (9.0-12.0) sec INR (<1.2) APTT (22.0-30.0) sec Sodium (137-145) mmol/L Potassium (3.5-5.1) mmol/L Chloride (98-107) mmol/L Carbon Dioxide (22-30) mmol/L Anion Gap mmol/L BUN (9-20) mg/dL Creatinine (0.66-1.25) mg/dL Est GFR (CKD-EPI)AfAm (>60 ml/min/1.73 sqM) Est GFR (CKD-EPI)NonAf (>60 ml/min/1.73 sqM) Glucose (74-99) mg/dL Plasma Lactic Acid Eitan (0.7-2.0) mmol/L Calcium (8.4-10.2) mg/dL Magnesium (1.6-2.3) mg/dL Total Bilirubin (0.2-1.3) mg/dL AST (17-59) U/L ALT (4-49) U/L Alkaline Phosphatase (38-126) U/L Troponin I (0.000-0.034) ng/mL NT-Pro-B Natriuret Pep 4130 pg/mL Total Protein (6.3-8.2) g/dL Albumin (3.5-5.0) g/dL Coronavirus (PCR) (Not Detectd) - EKG Data EKG Comments: EKG demonstrates normal sinus rhythm with a ventricular rate of 80. NE interval 192. QRS 172. QTC of 521. Bifascicular block. Negative for sgarbossa criteria. Disposition Clinical Impression: Pneumonia, Respiratory insufficiency Disposition: HOME SELF-CARE Condition: Stable Instructions (If sedation given, give patient instructions): Bacterial Pneumonia (ED) Additional Instructions: Please follow-up with your primary care doctor within 2-4 days. Return to the emergency department if you have do not have any improvement in your symptoms. Prescriptions: Levofloxacin [Levaquin] 750 mg PO DAILY 1 Days #5 tab Albuterol Inhaler [Ventolin Hfa Inhaler] 2 puff INHALATION RT-QID #8 gm Is patient prescribed a controlled substance at d/c from ED?: No Referrals: Gerard Mcelroy MD [Primary Care Provider] - 1-2 days Time of Disposition: 15:40
== END 2020-12-27 17:05 | disposition home or self-care (01) ==
LOC: EC 11:33
DX: J18.9 Pneumonia, unspecified organism (principal); R06.89 Other abnormalities of breathing; I10 Essential (primary) hypertension; I25.10 Atherosclerotic heart disease of native coronary artery without angina pectoris; J44.9 Chronic obstructive pulmonary disease, unspecified; E78.5 Hyperlipidemia, unspecified; F32.9 Major depressive disorder, single episode, unspecified; F17.200 Nicotine dependence, unspecified, uncomplicated; Z86.73 Personal history of transient ischemic attack (TIA), and cerebral infarction without residual deficits; Z79.82 Long term (current) use of aspirin; Z20.822 Contact with and (suspected) exposure to COVID-19
CPT/HCPCS: 99285; 96365; 96375; 36415; 93005; 83880; 80053; 83605; 83735; 84484; 85025; 85610; 85730; 87635; 71046; J0456; J0696

== ENCOUNTER 2021-02-17 06:53 | Observation (INO) | payer MEDICARE ==
[2021-02-17] MEDS ORDERED: DEXAMETHASONE SOD PHOSPHATE 10 MG/ML 1 ML VIAL IV STA (07:25)
--- NOTE | 2021-02-17 07:32 | ED ---
General Adult HPI - General Chief complaint: Shortness of Breath Stated complaint: SHANKIA Time Seen by Provider: 02/17/21 07:09 Source: patient, family Mode of arrival: wheelchair Limitations: no limitations - History of Present Illness Initial comments: Dictation was produced using [employer] dictation software. please excuse any grammatical, word or spelling errors. Chief Complaint: 80-year-old male with history of COPD, dyslipidemia and hypertension presents emergency department for shortness of breath History of Present Illness: Patient is a 80-year-old male presents to the emergency department for shortness of breath. Patient is hard of hearing. is at the bedside contributes to provide a history of present illness. Patient has a history of COPD. He states he quit smoking cigarettes 3 weeks ago. He now reverts to nicotine patches. Patient states that he had shortness of breath that started last night. He told his gave him a treatment of DuoNeb have that was prescribed to his family member. States that his symptoms improved slightly. Patient denies any chest pain. Denies any nausea. No coughing. No sore throat runny nose. Denies any constitutional symptoms. The ROS documented in this emergency department record has been reviewed and confirmed by me. Those systems with pertinent positive or negative responses have been documented in the HPI. All other systems are other negative and/or noncontributory. PHYSICAL EXAM: General Impression: Alert and oriented x3, not in acute distress HEENT: Normocephalic atraumatic, extra-ocular movements intact, pupils equal and reactive to light bilaterally, mucous membranes moist. Cardiovascular: Heart regular rate and rhythm Chest: Able to complete full sentences, no retractions, no tachypnea, lungs clear to auscultation bilaterally Abdomen: abdomen soft, non-tender, non-distended, no organomegaly Musculoskeletal: Pulses present and equal in all extremities, no peripheral edema Motor: no focal deficits noted Neurological: CN II-XII grossly intact, no focal motor or sensory deficits noted Skin: Intact with no visualized rashes Psych: Normal affect and mood ED course: 80-year-old male presents to the emergency department for shortness of breath. As upon arrival shows respiratory rate of 28, rest of vital signs within acceptable limits. Patient is not dyspneic at the bedside. Laboratory evaluation obtained. CBC within acceptable limits. Metabolic panel shows findings within acceptable limits. Troponin is elevated 0.063. With brain natruretic peptide of 14,700. 4 panel viral PCR is negative. Patient reevaluated bedside found to be stable medical condition. Patient has elevated troponin with elevated brain natruretic peptide. Troponin is likely a troponin leak however it seems to be above his usual baseline. Clinical presentation concern for heart failure and NSTEMI. Patient given aspirin and started on heparin. Patient be admitted with consultation to cardiology. EKG interpretation: Ventricular rate 92, sinus rhythm with PVCs, MO interval 196, QRS 164, QTC 536, right bundle branch block. No MO prolongation, no QTC prolongation, no ST or T-wave changes noted. EKG compared to 12/27/2020 showing no changes. Overall, this EKG is unremarkable - Related Data Home Medications Medication Instructions Recorded Confirmed Dutasteride/Tamsulosin HCl [Anamika 1 cap PO DAILY 11/21/17 02/17/21 0.5-0.4 mg Capsule] Simvastatin [Zocor] 20 mg PO DAILY 11/21/17 02/17/21 Furosemide [Lasix] 20 mg PO DAILY 10/09/18 02/17/21 hydrALAZINE HCL [Apresoline] 25 mg PO BID 10/09/18 02/17/21 Carvedilol Phosphate [Carvedilol 40 mg PO DAILY 12/07/18 02/17/21 ER] DULoxetine HCL [Cymbalta] 30 mg PO DAILY 12/30/19 02/17/21 DULoxetine HCL [Cymbalta] 60 mg PO DAILY 12/30/19 02/17/21 Aspirin 81 mg PO DAILY 07/23/20 02/17/21 Clopidogrel Bisulfate [Plavix] 75 mg PO DAILY 07/23/20 02/17/21 Multivit-Min/FA/Lycopen/Lutein 1 tab PO DAILY 07/23/20 02/17/21 [Centrum Silver Men Tablet] Albuterol Inhaler [Ventolin Hfa 2 puff INHALATION RT-Q4H PRN 12/27/20 02/17/21 Inhaler] Cyanocobalamin (Vitamin B-12) 1,000 mcg PO DAILY 12/27/20 02/17/21 [Vitamin B-12] Folic Acid 0.8 mg PO DAILY 12/27/20 02/17/21 Losartan Potassium 100 mg PO DAILY 12/27/20 02/17/21 Nicotine 14Mg/24Hr Patch [Habitrol 1 patch TRANSDERM DAILY PRN 02/17/21 02/17/21 14Mg/24Hr Patch] Allergies Allergy/AdvReac Type Severity Reaction Status Date / Time alprazolam [From Xanax] AdvReac WEAKNESS Verified 02/17/21 08:34 Review of Systems ROS Statement: Those systems with pertinent positive or pertinent negative responses have been documented in the HPI. ROS Other: All systems not noted in ROS Statement are negative. Past Medical History Past Medical History: Coronary Artery Disease (CAD), COPD, CVA/TIA, Hyperlipidemia, Hypertension, Osteoarthritis (OA) Additional Past Medical History / Comment(s): some TIA's per spouse seen on CT scan-is seeing a neurologist, SOB w/exertion recently, frequent back pain, fully vaccinated History of Any Multi-Drug Resistant Organisms: None Reported Past Surgical History: Heart Catheterization, Orthopedic Surgery Additional Past Surgical History / Comment(s): arthroscopic knee surg., cataracts removed Past Anesthesia/Blood Transfusion Reactions: No Reported Reaction Past Psychological History: Depression Smoking Status: Current every day smoker Past Alcohol Use History: None Reported Past Drug Use History: None Reported General Exam Limitations: no limitations Course Vital Signs 02/17/21 06:55 Temperature 97.3 F L Pulse Rate 95 Respiratory 28 H Rate Blood Pressure 178/101 O2 Sat by Pulse 97 Oximetry Medical Decision Making - Lab Data Result diagrams: 02/17/21 07:39 02/17/21 07:39 Lab Results 02/17/21 02/17/21 02/17/21 Range/Units 07:15 07:39 07:39 WBC 11.0 H (3.8-10.6) k/uL RBC 4.29 L (4.30-5.90) m/uL Hgb 12.4 L (13.0-17.5) gm/dL Hct 38.2 L (39.0-53.0) % MCV 88.9 (80.0-100.0) fL MCH 29.0 (25.0-35.0) pg MCHC 32.6 (31.0-37.0) g/dL RDW 15.3 (11.5-15.5) % Plt Count 239 (150-450) k/uL MPV 8.4 Neutrophils % 61 % Lymphocytes % 30 % Monocytes % 5 % Eosinophils % 3 % Basophils % 0 % Neutrophils # 6.8 (1.3-7.7) k/uL Lymphocytes # 3.2 (1.0-4.8) k/uL Monocytes # 0.6 (0-1.0) k/uL Eosinophils # 0.3 (0-0.7) k/uL Basophils # 0.0 (0-0.2) k/uL Sodium 140 (137-145) mmol/L Potassium 3.7 (3.5-5.1) mmol/L Chloride 109 H (98-107) mmol/L Carbon Dioxide 23 (22-30) mmol/L Anion Gap 8 mmol/L BUN 18 (9-20) mg/dL Creatinine 1.10 (0.66-1.25) mg/dL Est GFR (CKD-EPI)AfAm 74 (>60 ml/min/1.73 sqM) Est GFR (CKD-EPI)NonAf 64 (>60 ml/min/1.73 sqM) Glucose 113 H (74-99) mg/dL Calcium 9.1 (8.4-10.2) mg/dL Troponin I (0.000-0.034) ng/mL NT-Pro-B Natriuret Pep pg/mL Influenza Type A RNA Not Detected (Not Detectd) Influenza Type B (PCR) Not Detected (Not Detectd) RSV (PCR) Negative (Negative) SARS-CoV-2 (PCR) Not Detected (Not Detectd) 02/17/21 02/17/21 Range/Units 07:39 07:39 WBC (3.8-10.6) k/uL RBC (4.30-5.90) m/uL Hgb (13.0-17.5) gm/dL Hct (39.0-53.0) % MCV (80.0-100.0) fL MCH (25.0-35.0) pg MCHC (31.0-37.0) g/dL RDW (11.5-15.5) % Plt Count (150-450) k/uL MPV Neutrophils % % Lymphocytes % % Monocytes % % Eosinophils % % Basophils % % Neutrophils # (1.3-7.7) k/uL Lymphocytes # (1.0-4.8) k/uL Monocytes # (0-1.0) k/uL Eosinophils # (0-0.7) k/uL Basophils # (0-0.2) k/uL Sodium (137-145) mmol/L Potassium (3.5-5.1) mmol/L Chloride (98-107) mmol/L Carbon Dioxide (22-30) mmol/L Anion Gap mmol/L BUN (9-20) mg/dL Creatinine (0.66-1.25) mg/dL Est GFR (CKD-EPI)AfAm (>60 ml/min/1.73 sqM) Est GFR (CKD-EPI)NonAf (>60 ml/min/1.73 sqM) Glucose (74-99) mg/dL Calcium (8.4-10.2) mg/dL Troponin I 0.063 H* (0.000-0.034) ng/mL NT-Pro-B Natriuret Pep 15790 pg/mL Influenza Type A RNA (Not Detectd) Influenza Type B (PCR) (Not Detectd) RSV (PCR) (Negative) SARS-CoV-2 (PCR) (Not Detectd) Critical Care Time Critical Care Time: Yes Total Critical Care Time: 33 Disposition Clinical Impression: NSTEMI (non-ST elevated myocardial infarction), Heart failure Disposition: ADMITTED IP TO THIS HOSP Condition: Critical Referrals: Gerard Mcelroy MD [Primary Care Provider] - 1-2 days
[2021-02-17 08:03] LABS: Basophils % (A) 0 %; Eosinophils # (A) 0.3 k/uL (0-0.7); Eosinophils % (A) 3 %; HCT 38.2 % (39.0-53.0); HGB 12.4 gm/dL (13.0-17.5); Lymphocytes # (A) 3.2 k/uL (1.0-4.8); Lymphocytes % (A) 30 %; MCHC 32.6 g/dL (31.0-37.0); MCV 88.9 fL (80.0-100.0); Mean Platelet Volume 8.4; Monocytes # (A) 0.6 k/uL (0-1.0); Monocytes % (A) 5 %; Neutrophils # (A) 6.8 k/uL (1.3-7.7); Neutrophils % (A) 61 %; Platelet Count 239 k/uL (150-450); RBC 4.29 m/uL (4.30-5.90); RDW 15.3 % (11.5-15.5)
[2021-02-17 08:23] LABS: Calcium 9.1 mg/dL (8.4-10.2); Potassium 3.7 mmol/L (3.5-5.1)
--- NOTE | 2021-02-17 08:33 | XR ---
EXAMINATION TYPE: XR chest 1V portable DATE OF EXAM: 02/17/2021 COMPARISON: Chest x-ray 12/27/2020, chest x-ray and chest CT 07/23/2020 HISTORY: Dyspnea TECHNIQUE: Single frontal view of the chest is obtained. FINDINGS: Patient is rotated. There is no pleural effusion or pneumothorax seen. Question some patc hy perihilar groundglass opacity, prominence interstitium The cardiac silhouette size is stable, bord darci enlarged. Prominence of the pulmonary artery may be indicative of pulmonary artery hypertensio n. Calcified mediastinal nodes suspected. The osseous structures are intact. IMPRESSION: Borderline cardiomegaly, correlate for pulmonary artery hypertension, possible early int erstitial edema. Follow-up PA and lateral chest x-ray as indicated for better evaluation.
[2021-02-17] MEDS ORDERED: ASPIRIN 325 MG TAB PO STA (09:06)
[2021-02-17] MEDS ORDERED: HEPARIN SODIUM 1,000 UN/ML (10ML VL) IV ONE (09:11)
[2021-02-17] MEDS ORDERED: HEPARIN SODIUM 1,000 UN/ML (10ML VL) IV PRN (09:11)
[2021-02-17] MEDS: FUROSEMIDE 40 MG TAB PO SCH ×2 (09:51→22:12)
[2021-02-17] MEDS: HEPARIN SOD,PORK IN 0.45% NACL 25,000 UNIT in 0.45% NACL 1 250ML.BAG IV SCH (09:55)
[2021-02-17 16:49] LABS: Partial Thromboplastin Time 39.8 sec (22.0-30.0)
[2021-02-17 20:26] VITALS: RESP 18
[2021-02-17] MEDS: hydrALAZINE HCL 25 MG TAB PO SCH (22:12)
[2021-02-17] MEDS ORDERED: RX INFO: IV CONTRAST WAS GIVEN 1 EACH MISC MISCELLANE PRN (23:22)
[2021-02-17] MEDS ORDERED: NICOTINE 14MG/24HR PATCH TRANSDERM PRN (23:45)
[2021-02-18] MEDS: FUROSEMIDE 10 MG/ML 4 ML VIAL IV SCH ×2 (00:23→09:26)
--- NOTE | 2021-02-18 00:27 | HP ---
HISTORY AND PHYSICAL This is a 80-year-old white male with COPD, dyslipidemia and hypertension who came to the emergency room with shortness of breath. Smoker for many years. He tried some DuoNeb at home. He chest pain, shortness of breath. He came to the hospital with shortness of breath. PHYSICAL EXAMINATION: Sitting up. Vital signs are reviewed. CARDIOVASCULAR: S1, S2. LUNGS: Scattered rhonchi and wheezes. HEMATOLOGY: Negative Homans. PSYCH: Fair mood and affect. NEUROLOGIC: Alert and oriented x3. OPHTHALMOLOGIC: Pupils equal, round, reactive. Troponins are elevated x3. BNP 14,700. ASSESSMENT: 1. Acute on chronic congestive heart failure. 2. Ouj-BJ-pdxczdtno myocardial infarction. 3. Heparin. 4. Chronic obstructive pulmonary disease. Prognosis is guarded. Continue home medications. Heparin drip. Cardiology consult. IV Lasix. PAST MEDICAL HISTORY: Coronary artery disease, COPD, CVA, TIA, dyslipidemia, hypertension, osteoarthritis. SURGERIES: Heart catheterizations, orthopedic surgery, arthroscopic knee surgery, cataracts removed. SOCIAL HISTORY: Current everyday smoker. Blood pressure 178/101, temperature 97.3, pulse 95, O2 97. Prognosis guarded. Wait for cardiology consult. Do CT scan of the chest. MMODL / IJN: [id number] /
[2021-02-18] MEDS: HEPARIN SOD,PORK IN 0.45% NACL 25,000 UNIT in 0.45% NACL 1 250ML.BAG IV SCH (06:17)
--- NOTE | 2021-02-18 07:29 | ECHOF ---
Referral Reason:LV function MEASUREMENTS -------- HEIGHT: 152.4 cm WEIGHT: 81.7 kg BP: IVSd: 1.3 cm (0.6 - 1.1) LVIDd: 5.3 cm (3.9 - 5.3) LVPWd: 2.0 cm (0.6 - 1.1) IVSs: 1.5 cm LVIDs: 4.4 cm LVPWs: 1.8 cm LA Diam: 3.9 cm (2.7 - 3.8) LAESV Index (A-L): 41.15 ml/m Ao Diam: 3.2 cm (2.0 - 3.7) AV Cusp: 1.0 cm (1.5 - 2.6) MV EXCURSION: 20.181 mm (> 18.000) MV EF SLOPE: 106 mm/s (70 - 150) AR PHT: 490 ms FINDINGS -------- Sinus rhythm with extra systolic beats. This was a technically adequate study. The left ventricular size is normal. There is mild concentric left ventricular hypertrophy. Overa ll left ventricular systolic function is mildly impaired with, an EF between 45 - 50 %. Basal infer ior LV wall motion is hypokinetic. Basal inferoseptal LV wall motion is hypokinetic. Mid inferi or LV wall motion is hypokinetic. The right ventricle is normal in size. LA is severely dilated >40 ml/m2 The right atrial size is normal. There is mild aortic valve sclerosis. There is mild aortic regurgitation. Echogenic area noted on the aortic side, probably filaments. Mild mitral annular calcification present. Mild mitral regurgitation is present. The tricuspid valve appears structurally normal. Mild tricuspid regurgitation present. Right vent ricular systolic pressure is normal at < 35 mmHg. Trace/mild (physiologic) pulmonic regurgitation. The aortic root size is normal. There is no pericardial effusion. CONCLUSIONS -------- 1. There is mild concentric left ventricular hypertrophy. 2. Overall left ventricular systolic function is mildly impaired with, an EF between 45 - 50 %. 3. Basal inferior LV wall motion is hypokinetic. 4. Basal inferoseptal LV wall motion is hypokinetic. 5. Mid inferior LV wall motion is hypokinetic. 6. LA is severely dilated >40 ml/m2 7. There is mild aortic valve sclerosis. 8. There is mild aortic regurgitation. 9. Echogenic area noted on the aortic side, probably filaments. 10. Mild mitral annular calcification present. 11. Mild mitral regurgitation is present. 12. Mild tricuspid regurgitation present. 13. Trace/mild (physiologic) pulmonic regurgitation. FAMILY THERAPIST: Laura Trevizo RDCS
[2021-02-18] MEDS ORDERED: carvediloL 12.5 MG TAB PO SCH (07:30)
[2021-02-18 07:50] LABS: Basophils % (A) 0 %; Eosinophils % (A) 0 %; HCT 37.8 % (39.0-53.0); HGB 12.4 gm/dL (13.0-17.5); Lymphocytes # (A) 2.1 k/uL (1.0-4.8); Lymphocytes % (A) 18 %; MCH 29.5 pg (25.0-35.0); MCHC 32.8 g/dL (31.0-37.0); Mean Platelet Volume 9.2; Monocytes # (A) 0.6 k/uL (0-1.0); Monocytes % (A) 5 %; Neutrophils # (A) 9.1 k/uL (1.3-7.7); Neutrophils % (A) 76 %; Platelet Count 219 k/uL (150-450); RDW 15.4 % (11.5-15.5); WBC 11.9 k/uL (3.8-10.6)
[2021-02-18 08:18] LABS: Albumin 3.2 g/dL (3.5-5.0); Calcium 9.1 mg/dL (8.4-10.2); Potassium 3.9 mmol/L (3.5-5.1); Total Bilirubin 0.5 mg/dL (0.2-1.3); Total Protein 6.3 g/dL (6.3-8.2)
[2021-02-18] MEDS ORDERED: ATORVASTATIN 10 MG TAB PO SCH (09:00)
[2021-02-18] MEDS ORDERED: VIT A,C & E-LUTEIN-MINERALS 1 EACH TAB PO SCH (09:00)
[2021-02-18] MEDS ORDERED: CLOPIDOGREL 75 MG TAB PO SCH (09:00)
[2021-02-18] MEDS ORDERED: DULoxetine HCL 60 MG CAPSULE.DR PO SCH (09:00)
[2021-02-18] MEDS ORDERED: FINASTERIDE 5 MG TAB PO SCH (09:00)
[2021-02-18] MEDS ORDERED: FOLIC ACID 1 MG TAB PO SCH (09:00)
[2021-02-18] MEDS ORDERED: TAMSULOSIN 0.4 MG CAP.ER.24H PO SCH (09:00)
[2021-02-18] MEDS ORDERED: LOSARTAN 50 MG TAB PO SCH (09:00)
[2021-02-18] MEDS ORDERED: DULoxetine HCL 30 MG CAPSULE.DR PO SCH (09:00)
[2021-02-18] MEDS ORDERED: ASPIRIN 81 MG PO SCH (09:00)
--- NOTE | 2021-02-18 09:25 | CT ---
EXAMINATION TYPE: CT chest w con DATE OF EXAM: 02/18/2021 COMPARISON: Chest x-ray 02/17/2021, CT chest 07/23/2020 HISTORY: pain, COPD CT DLP: 417 mGycm Automated exposure control for dose reduction was used. CONTRAST: CT scan of the chest is performed with IV Contrast, patient injected with 100 mL of Isovue 300. FINDINGS: LUNGS: The lungs are showing some groundglass opacity bilaterally in a patchy distribution, interstit ium is mildly increased, there is no concerning parenchymal mass or nodule identified. Calcified nodu le is present right lower lobe as on prior. There is bilateral pleural effusion which is small left g reater than right There is no pneumothorax seen. The tracheobronchial tree is patent. MEDIASTINUM: There are no greater than 1 cm hilar or mediastinal lymph nodes. Shotty nodes are prese nt within the superior mediastinum, prevascular region similar to prior, some of the node shows some central calcification in the superior mediastinum. No pericardial effusion is seen. The heart is enl arged, there are coronary artery calcifications. Prominence of pulmonary artery again noted, consider pulmonary artery hypertension AORTA: Focal outpouching of the transverse aorta is again noted, small amount of fluid attenuation i s present immediately adjacent, the outpouching measures approximately 12 mm in transverse dimension, 12 mm in anterior to posterior dimension, atheromatous changes are present within the aorta. Proxima l descending aorta is ectatic at 3.2 cm, atheromatous change extends throughout the descending aorta, at the level of the hiatus the aorta measures 3.2 cm. OTHER: Reflux of contrast into the hepatic veins could be due to degree of right heart failure, layo elate. Gallstones noted within the gallbladder. There are changes of gynecomastia. IMPRESSION: There may be a component of congestive heart failure, small pleural effusions. Old granu lomatous disease. Correlate for pulmonary artery hypertension. 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 Cardiomegaly. Choleli thiasis, coronary artery disease. Additional findings above.
[2021-02-18] MEDS: hydrALAZINE HCL 25 MG TAB PO SCH (09:26)
[2021-02-18 10:04] VITALS: TEMP 97.6
--- NOTE | 2021-02-18 10:43 | P.CRDCN ---
History of Present Illness Consult date: 02/17/21 History of present illness: HISTORY OF PRESENT ILLNESS: This is a 80-year-old male with a past medical history significant for coronary artery disease, CVA, congestive heart failure, hypertension, and nicotine dependence. Patient follows in the office with Dr. Chauhan. We have been asked to see the patient in consultation for congestive heart failure. Patient examined at the bedside. Patient presented to the hospital with a chief complaint of SOB. He states this has been progressive over the past few days. He reports compliance with his cardiac medications. Patient was started on IV lasix. He reports his SOB has resolved and he is anxious to be discharged home today. EKG reveals sinus mechanism with PVCs and right bundle branch block. Left axis deviation. Chest xray borderline cardiomegaly, correlate for pulmonary artery hypertension. Possible early interstitial edema. Laboratory data: WBC 11.0. Hemoglobin 12.4. Platelet count 239. Sodium 140. Potassium 3.7. BUN 18. Creatinine 1.10. Troponin 0.063. ProBNP 14,700. Current home cardiac medications include hydralazine 25 mg twice a day, Zocor 20 mg daily, losartan 100 mg daily, Lasix 20 mg daily, Plavix 75 mg daily, carvedilol 40 mg daily, aspirin 81 mg daily Echocardiogram obtained in December 2019 reveals ejection fraction 53%. Mild aortic regurgitation. Moderate mitral regurgitation. Trace tricuspid regurgitation. Echocardiogram computed this admission revealed ejection fraction 45-50%. Basal inferior LV wall hypokinesis. Basal inferior septal LV hypokinesis. Midinferior LV wall hypokinesis. Mild aortic regurgitation. Mild mitral regurgitation. Mild tricuspid regurgitation. Chest CT: Component of congestive heart failure, small pleural effusions. Old granulomatous disease. Correlate for pulmonary artery hypertension. There is a thoracic aortic ulcer suspected semi-in appearance to prior exam. Cardiomegaly. Cholelithiasis. Coronary artery disease. Patient underwent cardiac cath in January 2020 revealing intermediate disease of the RCA and LAD. REVIEW OF SYSTEMS: At the time of my exam: CONSTITUTIONAL: Denies fever or chills. HEENT: Denies blurred vision, vision changes, or eye pain. Denies hemoptysis CARDIOVASCULAR: Denies chest pain. Denies orthopnea. Denies PND. Denies palpitations RESPIRATORY: Denies shortness of breath. GASTROINTESTINAL: Denies abdominal pain. Denies nausea or vomiting. HEMATOLOGIC: Denies bleeding disorders. GENITOURINARY: Denies any blood in urine. SKIN: Denies pruitis. Denies rash. PHYSICAL EXAM: VITAL SIGNS: Reviewed. GENERAL: Well-developed in no acute distress. HEENT: Head is normocephalic. Pupils are equal, round. Sclerae anicteric. Mucous membranes of the mouth are moist. Neck supple. No JVD or thyromegaly LUNGS: Respirations even and unlabored. Lungs essentially clear to auscultation bilaterally. HEART: Regular rate and rhythm. S1 and S2 heard. ABDOMEN: Soft. Nondistended. Nontender. EXTREMITIES: Normal range of motion. No clubbing or cyanosis. Peripheral pulses intact. No lower extremity edema NEUROLOGIC: Awake and alert. Oriented x 3. ASSESSMENT: Acute on chronic diastolic congestive heart failure Coronary artery disease History of CVA Hypertension Nicotine dependence PLAN: Continue home cardiac medications Patient is stable for discharge home today. Transition to oral lasix upon discharge. Follow up in the office with Dr. Chauhan Nurse practitioner note has been reviewed by physician. Signing provider agrees with the documented findings, assessment, and plan of care. Past Medical History Past Medical History: Coronary Artery Disease (CAD), COPD, CVA/TIA, Hyperlipidemia, Hypertension, Osteoarthritis (OA) Additional Past Medical History / Comment(s): some TIA's per spouse seen on CT scan-is seeing a neurologist, SOB w/exertion recently, frequent back pain, fully vaccinated History of Any Multi-Drug Resistant Organisms: None Reported Past Surgical History: Heart Catheterization, Orthopedic Surgery Additional Past Surgical History / Comment(s): arthroscopic knee surg., cataracts removed Past Anesthesia/Blood Transfusion Reactions: No Reported Reaction Past Psychological History: Depression Smoking Status: Current every day smoker Past Alcohol Use History: None Reported Past Drug Use History: None Reported Medications and Allergies Home Medications Medication Instructions Recorded Confirmed Type Dutasteride/Tamsulosin HCl [Anamika 1 cap PO DAILY 11/21/17 02/17/21 History 0.5-0.4 mg Capsule] Simvastatin [Zocor] 20 mg PO DAILY 11/21/17 02/17/21 History Furosemide [Lasix] 20 mg PO DAILY 10/09/18 02/17/21 History hydrALAZINE HCL [Apresoline] 25 mg PO BID 10/09/18 02/17/21 History Carvedilol Phosphate [Carvedilol 40 mg PO DAILY 12/07/18 02/17/21 History ER] DULoxetine HCL [Cymbalta] 30 mg PO DAILY 12/30/19 02/17/21 History DULoxetine HCL [Cymbalta] 60 mg PO DAILY 12/30/19 02/17/21 History Aspirin 81 mg PO DAILY 07/23/20 02/17/21 History Clopidogrel Bisulfate [Plavix] 75 mg PO DAILY 07/23/20 02/17/21 History Multivit-Min/FA/Lycopen/Lutein 1 tab PO DAILY 07/23/20 02/17/21 History [Centrum Silver Men Tablet] Albuterol Inhaler [Ventolin Hfa 2 puff INHALATION RT-Q4H PRN 12/27/20 02/17/21 History Inhaler] Cyanocobalamin (Vitamin B-12) 1,000 mcg PO DAILY 12/27/20 02/17/21 History [Vitamin B-12] Folic Acid 0.8 mg PO DAILY 12/27/20 02/17/21 History Losartan Potassium 100 mg PO DAILY 12/27/20 02/17/21 History Nicotine 14Mg/24Hr Patch [Habitrol 1 patch TRANSDERM DAILY PRN 02/17/21 02/17/21 History 14Mg/24Hr Patch] Allergies Allergy/AdvReac Type Severity Reaction Status Date / Time alprazolam [From Xanax] AdvReac WEAKNESS Verified 02/17/21 08:34 Physical Exam Vitals: Vital Signs Temp Pulse Resp BP Pulse Ox 02/17/21 13:31 96 20 142/62 95 02/17/21 12:27 100 22 178/90 98 02/17/21 09:57 102 H 22 183/115 96 02/17/21 06:55 97.3 F L 95 28 H 178/101 97 Intake and Output 02/16/21 02/17/21 02/17/21 22:59 06:59 14:59 Other: Weight 88.451 kg Results 02/18/21 07:04 02/18/21 07:04 Cardiac Enzymes 02/17/21 Range/Units 07:39 Troponin I 0.063 H* (0.000-0.034) ng/mL CBC 02/17/21 Range/Units 07:39 WBC 11.0 H (3.8-10.6) k/uL RBC 4.29 L (4.30-5.90) m/uL Hgb 12.4 L (13.0-17.5) gm/dL Hct 38.2 L (39.0-53.0) % Plt Count 239 (150-450) k/uL Comprehensive Metabolic Panel 02/17/21 Range/Units 07:39 Sodium 140 (137-145) mmol/L Potassium 3.7 (3.5-5.1) mmol/L Chloride 109 H (98-107) mmol/L Carbon Dioxide 23 (22-30) mmol/L BUN 18 (9-20) mg/dL Creatinine 1.10 (0.66-1.25) mg/dL Glucose 113 H (74-99) mg/dL Calcium 9.1 (8.4-10.2) mg/dL Current Medications Generic Name Dose Route Start Last Admin Trade Name Freq PRN Reason Stop Dose Admin Aspirin 81 mg 02/18/21 09:00 Aspirin 81 Mg PO DAILY [facility] Atorvastatin Calcium 10 mg 02/18/21 09:00 Atorvastatin 10 Mg Tab PO DAILY [facility] Clopidogrel Bisulfate 75 mg 02/18/21 09:00 Clopidogrel 75 Mg Tab PO DAILY [facility] Furosemide 40 mg 02/17/21 09:15 02/17/21 09:51 Furosemide 40 Mg Tab PO 40 mg Q12HR IZA Administration Heparin Sodium (Porcine) 0 unit 02/17/21 09:11 Heparin Sodium 1,000 Un/Ml (10ml Vl) IV PER PROTOCOL PRN Low PTT Protocol Hydralazine HCl 25 mg 02/17/21 21:00 Hydralazine Hcl 25 Mg Tab PO BID IZA Heparin Sodium/Sodium Chloride 250 mls @ 9.995 mls/hr 02/17/21 09:15 02/17/21 09:55 25,000 unit/ Sodium Chloride IV 11.3 units/kg/hr .Q24H IZA 9.995 mls/hr Administration Protocol 11.3 UNITS/KG/HR Losartan Potassium 100 mg 02/18/21 09:00 Losartan 50 Mg Tab PO DAILY [facility] Intake and Output 02/16/21 02/17/21 02/17/21 22:59 06:59 14:59 Other: Weight 88.451 kg 02/17/21 07:39 02/17/21 07:39
[2021-02-18 12:38] VITALS: BP 144/96; PULSE 77
[2021-02-18 13:18] VITALS: BMI 37.3
--- NOTE | 2021-02-18 14:16 | PN ---
PROGRESS NOTE CT scan was reviewed. It shows cardiomegaly, coronary artery calcification, pulmonary hypertension, possibly has some right-sided heart failure. He has been short of breath over the last few weeks. Started him on IV Lasix yesterday. Remains on his carvedilol, Plavix, losartan, Cozaar, hydralazine. EKG shows right bundle branch block, pulmonary artery hypertension. Echo shows 45% to 50% ejection fraction, which is a little bit less than it was in the past, with hypokinesis and some mild valvular abnormalities. He has a history of stent in 2019. Vital signs are stable. Afebrile. CARDIOVASCULAR: S1, S2. Lungs have rales at the bases. Hematology negative Homans. Psych fair mood and affect. ASSESSMENT: 1. Acute on chronic diastolic congestive heart failure. 2. Coronary artery disease. 3. Cerebrovascular accident. 4. Hypertension. 5. Nicotine addiction. Continue with diuresis. Wait for cardiology recommendations. MMKHLOE / ALEJAN: [id number] /
--- NOTE | 2021-02-18 23:01 | DS ---
DISCHARGE SUMMARY This 80-year-old white male came in with congestive heart failure. Echocardiogram shows ejection fraction about 45% to 48%, down from 52 or 53 last time he had an echo. He came in with fluid overload, BNP of 14,700. Seen by Cardiology. He was given IV Lasix for 24 hours. He improved with his breathing. He was sent home when cleared by Cardiology for discharge on oral Lasix 40 mg daily, aspirin 81 mg daily, Lipitor 20 mg daily, Coreg 12.5 b.i.d., Plavix 75 mg daily, Cymbalta 90 mg daily, Proscar 5 mg daily, folic acid 1 mg daily, Apresoline 25 b.i.d., Cozaar 100 daily, multivitamin daily, nicotine patch 14 mg daily, Flomax 0.4 mg daily. Condition stable. Prognosis guarded. Ambulate as tolerated. This white male came to the hospital with congestive heart failure, shortness of breath. CT of his chest was done. Echocardiogram was done. No lung cancer was found. No pulmonary embolus was found. CHF medications readjusted for lower ejection fraction. Cleared by Cardiology. Condition stable. Low-fat diet. Follow up in Dr. Mcelroy's office in a day. MMODL / IJN: [id number] /
[2021-02-19] MEDS ORDERED: FUROSEMIDE 40 MG TAB PO SCH (09:00)
== END 2021-02-18 16:35 | disposition home or self-care (01) ==
LOC: EC 06:53 → 3SCARD 09:07 → INTOOBSV 09:07 → 3SCARD 15:25 → UNDODISIN 02-18 16:35
PROVIDERS: ADMIT Family Medicine; ATTEND Family Medicine
DX: I11.0 Hypertensive heart disease with heart failure (principal); I50.33 Acute on chronic diastolic (congestive) heart failure; I21.4 Non-ST elevation (NSTEMI) myocardial infarction; I25.10 Atherosclerotic heart disease of native coronary artery without angina pectoris; J44.9 Chronic obstructive pulmonary disease, unspecified; I08.3 Combined rheumatic disorders of mitral, aortic and tricuspid valves; E78.5 Hyperlipidemia, unspecified; H91.90 Unspecified hearing loss, unspecified ear; I49.3 Ventricular premature depolarization; I45.10 Unspecified right bundle-branch block; F32.A Depression, unspecified; M19.90 Unspecified osteoarthritis, unspecified site; K80.20 Calculus of gallbladder without cholecystitis without obstruction; F17.210 Nicotine dependence, cigarettes, uncomplicated; Z20.822 Contact with and (suspected) exposure to COVID-19; Z79.02 Long term (current) use of antithrombotics/antiplatelets; Z79.82 Long term (current) use of aspirin; Z79.899 Other long term (current) drug therapy; Z88.8 Allergy status to other drugs, medicaments and biological substances; Z86.73 Personal history of transient ischemic attack (TIA), and cerebral infarction without residual deficits; Z98.49 Cataract extraction status, unspecified eye
CPT/HCPCS: 96366 ×2; 96375 ×2; 96376; 96365; 99291; 36415; 93005; 93306; 83880; 80053; 80048; 84484; 85025 ×2; 85610; 85730 ×2; 87502; 87634; 87635; 71045; 71260; G0378 ×2; S0138; J1100; J1940; J1644 ×3; Q9967; 96374

== ENCOUNTER 2021-02-28 21:57 | Emergency (ER) | payer MEDICARE ==
[2021-02-28 22:17] VITALS: PULSE 87; RESP 18
[2021-02-28] MEDS ORDERED: PHENYLEPHRINE 0.25% NASAL SPRA 1 SPRAY/ML NASAL STA (22:38)
--- NOTE | 2021-02-28 22:38 | ED ---
General Adult HPI - General Chief complaint: ENT Stated complaint: hypertension, nosebleed Time Seen by Provider: 02/28/21 22:23 Source: EMS, RN notes reviewed Mode of arrival: EMS Limitations: no limitations - History of Present Illness Initial comments: 80-year-old male patient very hard of hearing, presents to the emergency room with family member complaining of a nosebleed on and off all day. Patient states that he came in by EMS and they placed a nose clamp. It has been on for one hour. Bleeding has stopped at this time. He was bleeding from the left side only . She denies any trauma. He denies any difficulty breathing, chest pain or pain. He is on baby aspirin only. He does have a history of COPD, hypertension, CVA and osteoarthritis. He does have a history of cardiac catheterization -: days(s) (1) Severity scale (1-10): 0 Consistency: now resolved Associated Symptoms: denies other symptoms - Related Data Home Medications Medication Instructions Recorded Confirmed Dutasteride/Tamsulosin HCl [Anamika 1 cap PO DAILY 11/21/17 02/17/21 0.5-0.4 mg Capsule] Simvastatin [Zocor] 20 mg PO DAILY 11/21/17 02/17/21 hydrALAZINE HCL [Apresoline] 25 mg PO BID 10/09/18 02/17/21 Carvedilol Phosphate [Carvedilol 40 mg PO DAILY 12/07/18 02/17/21 ER] DULoxetine HCL [Cymbalta] 30 mg PO DAILY 12/30/19 02/17/21 DULoxetine HCL [Cymbalta] 60 mg PO DAILY 12/30/19 02/17/21 Aspirin 81 mg PO DAILY 07/23/20 02/17/21 Clopidogrel Bisulfate [Plavix] 75 mg PO DAILY 07/23/20 02/17/21 Multivit-Min/FA/Lycopen/Lutein 1 tab PO DAILY 07/23/20 02/17/21 [Centrum Silver Men Tablet] Albuterol Inhaler [Ventolin Hfa 2 puff INHALATION RT-Q4H PRN 12/27/20 02/17/21 Inhaler] Cyanocobalamin (Vitamin B-12) 1,000 mcg PO DAILY 12/27/20 02/17/21 [Vitamin B-12] Folic Acid 0.8 mg PO DAILY 12/27/20 02/17/21 Losartan Potassium 100 mg PO DAILY 12/27/20 02/17/21 Nicotine 14Mg/24Hr Patch [Habitrol] 1 patch TRANSDERM DAILY PRN 02/17/21 02/17/21 Previous Rx's Medication Instructions Recorded Furosemide [Lasix] 40 mg PO DAILY 90 Days #90 tab 02/18/21 Tamsulosin [Flomax] 0.4 mg PO DAILY 30 Days #30 capsule 02/18/21 Allergies Allergy/AdvReac Type Severity Reaction Status Date / Time alprazolam [From Xanax] AdvReac WEAKNESS Verified 02/28/21 22:16 Review of Systems ROS Statement: Those systems with pertinent positive or pertinent negative responses have been documented in the HPI. ROS Other: All systems not noted in ROS Statement are negative. Past Medical History Past Medical History: Coronary Artery Disease (CAD), COPD, CVA/TIA, Hyperlipidemia, Hypertension, Osteoarthritis (OA) Additional Past Medical History / Comment(s): some TIA's per spouse seen on CT scan-is seeing a neurologist, SOB w/exertion recently, frequent back pain, fully vaccinated History of Any Multi-Drug Resistant Organisms: None Reported Past Surgical History: Heart Catheterization, Orthopedic Surgery Additional Past Surgical History / Comment(s): arthroscopic knee surg., cataracts removed Past Anesthesia/Blood Transfusion Reactions: No Reported Reaction Past Psychological History: Depression Smoking Status: Current every day smoker Past Alcohol Use History: None Reported Past Drug Use History: None Reported General Exam Limitations: no limitations General appearance: alert, in no apparent distress Head exam: Present: atraumatic, normocephalic, normal inspection Eye exam: Present: normal appearance, EOMI. Absent: conjunctival injection, periorbital swelling, periorbital tenderness ENT exam: Present: mucous membranes moist, other (Blood noted in oropharynx; dried blood noted in the left nostril) Neck exam: Present: normal inspection, full ROM. Absent: tenderness, meningismus, lymphadenopathy, thyromegaly Respiratory exam: Present: normal lung sounds bilaterally. Absent: respiratory distress, wheezes, rales, rhonchi, stridor Cardiovascular Exam: Present: regular rate GI/Abdominal exam: Present: soft, normal bowel sounds. Absent: distended, tenderness, guarding, rebound, rigid Back exam: Absent: tenderness, CVA tenderness (R), CVA tenderness (L) Neurological exam: Present: alert, oriented X3, other (. Hard of hearing) Psychiatric exam: Present: normal affect, normal mood Skin exam: Present: warm, dry, intact, normal color. Absent: rash, diaphoretic, erythema, petechiae, pallor, mottled Course Vital Signs 02/28/21 02/28/21 22:13 23:36 Temperature 97.5 F L 97.6 F Pulse Rate 87 87 Respiratory 18 18 Rate Blood Pressure 168/104 146/92 O2 Sat by Pulse 97 97 Oximetry Medical Decision Making - Medical Decision Making This is a well-appearing 80-year-old male, hard of hearing, presents to the emergency room with his complaining of a left-sided nosebleed that has been on and off all day. Patient states that he takes a baby aspirin a day no other blood thinners. He denies any trauma. He denies any vomiting, chest pain or shortness of breath. He has been observed in the emergency room for several hours and has had no rebleeding. He was given a nasal clamp and José-Synephrine. Directed to follow up with his primary care doctor as scheduled in March. Return to the emergency room with any new or worsening symptoms. Case was discussed with Dr. Garner. - Lab Data Result diagrams: 02/28/21 22:36 Lab Results 02/28/21 Range/Units 22:36 WBC 11.0 H (3.8-10.6) k/uL RBC 4.26 L (4.30-5.90) m/uL Hgb 12.6 L (13.0-17.5) gm/dL Hct 37.7 L (39.0-53.0) % MCV 88.6 (80.0-100.0) fL MCH 29.7 (25.0-35.0) pg MCHC 33.5 (31.0-37.0) g/dL RDW 16.2 H (11.5-15.5) % Plt Count 186 (150-450) k/uL MPV 8.5 Anisocytosis Slight Disposition Clinical Impression: Epistaxis Disposition: HOME SELF-CARE Condition: Good Instructions (If sedation given, give patient instructions): Nosebleed (ED) Additional Instructions: You can use the phenylephrine nasal spray 2 sprays in each nostril every 4 hours for the next 3 days. Do not use past 3 days. Use a humidifier to moisten the air. Return to the emergency room with any new or worsening symptoms. If nose rebleeds please use nasal clamp and leave in place for 20 minutes and then reassess. Do not swallow blood. Follow-up with the primary care doctor as scheduled in March. Is patient prescribed a controlled substance at d/c from ED?: No Referrals: Gerard Mcelroy MD [Primary Care Provider] - 1-2 days Time of Disposition: 23:37
[2021-02-28 22:59] LABS: Anisocytosis Slight; HCT 37.7 % (39.0-53.0); HGB 12.6 gm/dL (13.0-17.5); MCH 29.7 pg (25.0-35.0); MCHC 33.5 g/dL (31.0-37.0); MCV 88.6 fL (80.0-100.0); Mean Platelet Volume 8.5; Platelet Count 186 k/uL (150-450); RBC 4.26 m/uL (4.30-5.90); RDW 16.2 % (11.5-15.5)
[2021-02-28 23:36] VITALS: BP 146/92; TEMP 97.6
== END 2021-02-28 23:40 | disposition home or self-care (01) ==
LOC: EC 21:57
DX: R04.0 Epistaxis (principal); J44.9 Chronic obstructive pulmonary disease, unspecified; I10 Essential (primary) hypertension; M19.90 Unspecified osteoarthritis, unspecified site; I25.10 Atherosclerotic heart disease of native coronary artery without angina pectoris; E78.5 Hyperlipidemia, unspecified; F32.A Depression, unspecified; F17.200 Nicotine dependence, unspecified, uncomplicated; Z79.82 Long term (current) use of aspirin; Z88.1 Allergy status to other antibiotic agents; Z86.73 Personal history of transient ischemic attack (TIA), and cerebral infarction without residual deficits
CPT/HCPCS: 36415; 85027; 99283

== ENCOUNTER 2021-06-30 09:03 | Emergency (ER) | payer MEDICARE ==
[~2021-06-30 09:03] MED LIST changes: +EPINEPHrine 10 ML SYRINGE (0.1 MG/ML) ONE; -LACTATED RINGERS 1,000 ML IV SCH; -LIDOCAINE 1% (10MG/ML) FOR IV START INTRADERMA PRN; +SODIUM BICARB 8.4% 50 ML SYR (1 MEQ/ML) ONE
[2021-06-30 09:09] LABS: Glucose,Whole Blood 89 mg/dL (75-99)
[2021-06-30 09:19] VITALS: BP 0/0; PULSE 0; RESP 0; TEMP 0
[2021-06-30 10:08] LABS: INR 1.1 (<1.2); Prothrombin Time 11.7 sec (9.0-12.0)
[2021-06-30 10:12] LABS: Albumin 2.1 g/dL (3.5-5.0); Calcium 7.8 mg/dL (8.4-10.2); Potassium 3.1 mmol/L (3.5-5.1); Total Bilirubin 0.5 mg/dL (0.2-1.3); Total Protein 4.4 g/dL (6.3-8.2)
[2021-06-30 10:32] LABS: Basophils # (A) 0.1 k/uL (0-0.2); Basophils % (A) 1 %; Eosinophils # (A) 0.3 k/uL (0-0.7); Eosinophils % (A) 4 %; HCT 32.9 % (39.0-53.0); Hypochromasia Slight; Lymphocytes # (A) 4.2 k/uL (1.0-4.8); Lymphocytes % (A) 45 %; MCH 31.4 pg (25.0-35.0); Mean Platelet Volume 10.1; Monocytes # (A) 0.3 k/uL (0-1.0); Monocytes % (A) 3 %; Neutrophils # (A) 4.4 k/uL (1.3-7.7); Neutrophils % (A) 46 %; Platelet Count 205 k/uL (150-450); RBC 3.35 m/uL (4.30-5.90); RDW 14.7 % (11.5-15.5); WBC 9.5 k/uL (3.8-10.6)
[2021-06-30 10:36] LABS: HGB 10.5 gm/dL (13.0-17.5); MCV 98.2 fL (80.0-100.0)
--- NOTE | 2021-06-30 10:42 | CT ---
EXAMINATION TYPE: CT abdomen pelvis w con DATE OF EXAM: 06/30/2021 COMPARISON: CT dated 06/23/2021 HISTORY: Cardiac arrest. CT DLP: 871.3 mGycm Automated exposure control for dose reduction was used. TECHNIQUE: Helical acquisition of images was performed from the lung bases through the pelvis. CONTRAST: Performed without Oral Contrast and with IV Contrast, patient injected with 200ml mL of Isovue 300. FINDINGS: Non visualized contrast in the abdomen or the pelvis in spite of the IV contrast administration. LUNG BASES: Left basal pulmonary atelectasis with smaller right basal atelectasis. Stable 2 cm pleura l-based nodule in the right lung base since February 2021 CT scan. Left ventricular enlargement with coronary arterial calcifications. LIVER/GB: Interval cholecystectomy. Branching air is seen within the left hepatic lobe anteriorly ryder picious for portal venous rather than pneumobilia. Unremarkable liver otherwise. PANCREAS: Atrophic SPLEEN: No significant abnormality is seen. ADRENALS: Unremarkable right adrenal. The left adrenal is inseparable from the left retroperitoneal h ematoma. KIDNEYS: Atrophic right kidney with suspected cyst within. Large left retroperitoneal hematoma mainly seen surrounding the left kidney and extending along the left psoas muscle down to the pelvis, also inseparable from the left lateral aspect of the known large infrarenal abdominal aortic aneurysm, hig hly suspicious for ruptured abdominal aortic aneurysm. The aneurysm measures up to 7.2 cm compared to 7 cm on the previous CT scan. No extension of aneurysm into the iliac arteries. Suspected cysts with in the left kidney which appears displaced by the left retroperitoneal hematoma. The hematoma is seen extending inferiorly into the left inguinal canal along the left inguinal hernia. FREE AIR: Scattered air bubbles are seen at the anterior aspect of the lower abdomen as well as in t he right inguinal region extending inferiorly into the right hemiscrotum. RETROPERITONEAL ADENOPATHY: None visualized. REPRODUCTIVE ORGANS: Enlarged prostate. Unremarkable seminal vesicles. URINARY BLADDER: Collapsed over a Abebe catheter and gas. PELVIC ADENOPATHY: None visualized. OSSEOUS STRUCTURES: Degenerative changes of the lower thoracic and lumbar spine. Marked degenerative changes at L2-3 level. BOWEL: Unremarkable stomach and duodenum. No evidence of bowel obstruction or eliana pneumatosis. Unc omplicated colonic diverticulosis. Fecal loading of the right hemicolon. Bowel ischemia can't be excl uded by this CT scan. OTHER: Scattered arterial atherosclerotic calcifications. Bilateral inguinal hernias. Surgical suture s are seen along the umbilicus with right lower quadrant surgical drain. IMPRESSION: Large left-sided retroperitoneal hematoma as detailed above, likely representing sequela infrarenal a ortic aneurysmal rupture. Recommend urgent vascular surgery consultation. Recent cholecystectomy with small amount of peritoneal air and branching gas in the left hepatic lobe , possibly related to postoperative changes however bowel ischemia and portal venous gas cannot be ex cluded. No evidence of bowel obstruction or eliana pneumatosis. Recommend clinical correlation and fur ther workup. Other findings as detailed above. Findings were discussed with the referring ER physician immediately after the CT scan was performed.
--- NOTE | 2021-06-30 10:55 | CT ---
EXAMINATION TYPE: CT chest angio for PE DATE OF EXAM: 06/30/2021 COMPARISON: CT dated 07/23/2020 HISTORY: Cardiac arrest. CT DLP: 468 mGy.cm. Automated Exposure Control for Dose Reduction was Utilized. TECHNIQUE AND CONTRAST: CTA scan of the thorax is performed with IV Contrast, patient injected with 200ml mL of Isovue 370, p ulmonary angiogram protocol FINDINGS: No definite contrast enhancement is identified in spite of injecting twice, possibly related to the p atient's recent arrest. Assessment for pulmonary embolism is not possible due to lack of pulmonary artery enhancement. The pu lmonary trunk measures 3.1 cm. Arterial atherosclerotic calcifications and coronary arterial atherosc lerotic calcifications. 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 Suspected left tone tricular enlargement. No pericardial effusion. Endotracheal tube with the tip is about 2.6 cm proximal to the leydi. Left basal subsegmental pulmon duncan atelectasis, infection or aspiration can't be excluded. Chronic pulmonary changes with prominent interstitial lung markings, mild COPD and minimal bilateral basal pulmonary fibrotic changes. Stable pleural-based nodule in the right lung base measuring 2 cm. No sizable pleural effusion. Stabl e prominent partially calcified superior mediastinal lymph nodes. No progressive lymphadenopathy in t he chest. Bilateral gynecomastia changes. CT scan of the abdomen is dictated separately. Degenerative changes of the thoracic spine. IMPRESSION: Lack of enhancement of the pulmonary arteries in spite of injecting twice likely due to the recent ca rdiac arrest. Pulmonary embolism can't be excluded by this CT scan. 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 Other incid ental findings as described above.
--- NOTE | 2021-06-30 11:50 | ED ---
General Adult HPI - General Chief complaint: Cardiac Arrest/CPR Stated complaint: Cardiac arrest Time Seen by Provider: 06/30/21 09:20 Source: EMS, RN notes reviewed, old records reviewed Mode of arrival: EMS Limitations: language barrier, altered mental status, physical limitation - History of Present Illness Initial comments: This is a 80-year-old male presents emergency Department via EMS after he was found down unresponsive in a spasm. Patient recently approximately 2 weeks ago had a cholecystectomy and had a history of AAA. Patient was found on the bathroom after about 5 minutes after he went in there by his he was unresponsive. When EMS arrived the patient had agonal breathing and a faint pulse. By the time EMS got the patient into the emesis the patient was pulses and they started CPR at that point time gave the patient epinephrine and continued CPR. Just prior to arrival to the hospital he got faint pulses paradoxically ceased CPR. When we get the patient into the trauma bay and into a bed patient had no pulses and CPR began again. No other history is available at this time. - Related Data Home Medications Medication Instructions Recorded Confirmed Simvastatin [Zocor] 20 mg PO DAILY 11/21/17 06/21/21 hydrALAZINE HCL [Apresoline] 25 mg PO BID 10/09/18 06/21/21 DULoxetine HCL [Cymbalta] 30 mg PO DAILY 12/30/19 06/21/21 DULoxetine HCL [Cymbalta] 60 mg PO DAILY 12/30/19 06/21/21 Multivit-Min/FA/Lycopen/Lutein 1 tab PO DAILY 07/23/20 06/21/21 [Centrum Silver Men Tablet] Cyanocobalamin (Vitamin B-12) 1,000 mcg PO DAILY 12/27/20 06/21/21 [Vitamin B-12] Folic Acid 0.8 mg PO DAILY 12/27/20 06/21/21 Losartan Potassium 100 mg PO DAILY 12/27/20 06/21/21 HYDROcodone/APAP 10-325MG [[place] 1 tab PO BID PRN 05/31/21 06/21/21 10-325] Ipratropium-Albuterol Nebulize 3 ml INHALATION RT-QID PRN 05/31/21 06/21/21 [Duoneb 0.5 mg-3 mg/3 ml Soln] Omeprazole 20 mg PO DAILY 05/31/21 06/21/21 Previous Rx's Medication Instructions Recorded Tamsulosin [Flomax] 0.4 mg PO DAILY 30 Days #30 capsule 02/18/21 Finasteride [Proscar] 5 mg PO DAILY tab 06/01/21 Furosemide [Lasix] 40 mg PO DAILY 90 Days #90 tab 06/01/21 Spironolactone [Aldactone] 25 mg PO DAILY #90 tablet 06/01/21 carvediloL [Coreg*] 12.5 mg PO AC-BID 30 Days #60 tab 06/22/21 Amoxicillin/Potassium Clav 1 tab PO Q12HR 7 Days #14 tab 06/27/21 [Augmentin 875-125 Tablet] Docusate [Colace] 100 mg PO BID #24 capsule 06/27/21 Fluconazole [Diflucan] 100 mg PO DAILY 7 Days #7 tab 06/27/21 Hydrocodone/Acetaminophen 1 each PO Q6HR 3 Days #12 tab 06/27/21 [Hydrocodone/Acetaminophen 7.5-325] Tamsulosin [Flomax] 0.4 mg PO DAILY #30 cap 06/27/21 Allergies Allergy/AdvReac Type Severity Reaction Status Date / Time alprazolam [From Xanax] AdvReac WEAKNESS Verified 06/21/21 11:49 Review of Systems ROS Statement: Those systems with pertinent positive or pertinent negative responses have been documented in the HPI. ROS Other: All systems not noted in ROS Statement are negative. Past Medical History Past Medical History: Coronary Artery Disease (CAD), COPD, CVA/TIA, Hyperlipidemia, Hypertension, Osteoarthritis (OA) Additional Past Medical History / Comment(s): some TIA's per spouse seen on CT scan-is seeing a neurologist, SOB w/exertion recently, frequent back pain, fully vaccinated History of Any Multi-Drug Resistant Organisms: None Reported Past Surgical History: Heart Catheterization, Orthopedic Surgery Additional Past Surgical History / Comment(s): arthroscopic knee surg., cataracts removed Past Anesthesia/Blood Transfusion Reactions: No Reported Reaction Past Psychological History: Depression Smoking Status: Current every day smoker Past Alcohol Use History: None Reported Past Drug Use History: None Reported - Past Family History Father Family Medical History: Cancer Additional Family Medical History / Comment(s): prostate cancer Mother Family Medical History: Cancer Additional Family Medical History / Comment(s): pancreatic cancer General Exam - General Exam Comments Initial Comments: GENERAL: Patient is well-developed and well-nourished. ENT: No gross abnormalities were noted EYES: Ice were fixed and dilated and unresponsive to light PULMONARY: Patient was currently being bagged and he had breath sounds bilaterally. CARDIOVASCULAR: No heart sounds were heard and patient had no pulses ABDOMEN: No palpable masses noted. Patient did de a recent surgery infection were noted SKIN: Skin is pale NEUROLOGIC: Patient is unresponsive MUSCULOSKELETAL: Patient is not moving any extremities LYMPHATICS: No significant lymphadenopathy is noted PSYCHIATRIC: Unable to assess Limitations: language barrier, altered mental status, physical limitation Course Vital Signs 06/30/21 09:17 Temperature 0 F L Pulse Rate 0 L Respiratory 0 L Rate Blood Pressure 0/0 O2 Sat by Pulse 0 L Oximetry Procedures - Intubation Laryngoscope: Mclaughlin Size: 3 ET Tube Size: 7.5 ET Tube Uncuffed: No Tube Secured Location: teeth Tube Placement Confirmation: visualized tube passing through cords, equal breath sounds bilaterally, no breath sounds over epigastrium, confirmation by capnometry Patient Tolerated Procedure: well Intubation Complications: none Medical Decision Making - Medical Decision Making CPR was performed and pulses were returned multiple times however we could never maintain them. Patient was on Levophed a sales protocol was followed. Please see nursing was details. We did get the patient over to CAT scan showed a ruptured AAA with bleeding in the retroperitoneum in the abdomen. I spoke with family family wanted no further intervention at this time so when the patient lost his pulse is final time no further CPR was done. Patient was pronounced at 1042. EKG showed atrial tachycardia at 126 patient's minute RI interval is 208 QRSs 166 QT interval 370 QTC is 445. Patient's right bundle branch block. I spoke with Dr. Mcelroy and Dr. Chan to make him aware of the case. I spoke with the medical secretary teacher and she released the body. - Lab Data Result diagrams: 06/30/21 09:28 06/30/21 09:28 Lab Results 06/30/21 06/30/21 06/30/21 Range/Units 09:07 09:28 09:28 WBC 9.5 (3.8-10.6) k/uL RBC 3.35 L (4.30-5.90) m/uL Hgb 10.5 L D (13.0-17.5) gm/dL Hct 32.9 L (39.0-53.0) % MCV 98.2 D (80.0-100.0) fL MCH 31.4 (25.0-35.0) pg MCHC 32.0 (31.0-37.0) g/dL RDW 14.7 (11.5-15.5) % Plt Count 205 (150-450) k/uL MPV 10.1 Neutrophils % 46 % Lymphocytes % 45 % Monocytes % 3 % Eosinophils % 4 % Basophils % 1 % Neutrophils # 4.4 (1.3-7.7) k/uL Lymphocytes # 4.2 (1.0-4.8) k/uL Monocytes # 0.3 (0-1.0) k/uL Eosinophils # 0.3 (0-0.7) k/uL Basophils # 0.1 (0-0.2) k/uL Hypochromasia Slight PT 11.7 (9.0-12.0) sec INR 1.1 (<1.2) APTT 42.0 H (22.0-30.0) sec Sodium (137-145) mmol/L Potassium (3.5-5.1) mmol/L Chloride (98-107) mmol/L Carbon Dioxide (22-30) mmol/L Anion Gap mmol/L BUN (9-20) mg/dL Creatinine (0.66-1.25) mg/dL Est GFR (CKD-EPI)AfAm (>60 ml/min/1.73 sqM) Est GFR (CKD-EPI)NonAf (>60 ml/min/1.73 sqM) Glucose (74-99) mg/dL POC Glucose (mg/dL) 89 (75-99) mg/dL POC Glu Methods And Procedures Analyst ID Dequan Sidra Calcium (8.4-10.2) mg/dL Magnesium (1.6-2.3) mg/dL Total Bilirubin (0.2-1.3) mg/dL AST (17-59) U/L ALT (4-49) U/L Alkaline Phosphatase (38-126) U/L Troponin I (0.000-0.034) ng/mL Total Protein (6.3-8.2) g/dL Albumin (3.5-5.0) g/dL 06/30/21 06/30/21 Range/Units 09:28 09:28 WBC (3.8-10.6) k/uL RBC (4.30-5.90) m/uL Hgb (13.0-17.5) gm/dL Hct (39.0-53.0) % MCV (80.0-100.0) fL MCH (25.0-35.0) pg MCHC (31.0-37.0) g/dL RDW (11.5-15.5) % Plt Count (150-450) k/uL MPV Neutrophils % % Lymphocytes % % Monocytes % % Eosinophils % % Basophils % % Neutrophils # (1.3-7.7) k/uL Lymphocytes # (1.0-4.8) k/uL Monocytes # (0-1.0) k/uL Eosinophils # (0-0.7) k/uL Basophils # (0-0.2) k/uL Hypochromasia PT (9.0-12.0) sec INR (<1.2) APTT (22.0-30.0) sec Sodium 140 (137-145) mmol/L Potassium 3.1 L (3.5-5.1) mmol/L Chloride 105 (98-107) mmol/L Carbon Dioxide 16 L (22-30) mmol/L Anion Gap 19 mmol/L BUN 15 (9-20) mg/dL Creatinine 1.38 H (0.66-1.25) mg/dL Est GFR (CKD-EPI)AfAm 56 (>60 ml/min/1.73 sqM) Est GFR (CKD-EPI)NonAf 49 (>60 ml/min/1.73 sqM) Glucose 201 H (74-99) mg/dL POC Glucose (mg/dL) (75-99) mg/dL POC Glu Methods And Procedures Analyst ID Calcium 7.8 L (8.4-10.2) mg/dL Magnesium 2.0 (1.6-2.3) mg/dL Total Bilirubin 0.5 (0.2-1.3) mg/dL AST 124 H (17-59) U/L ALT 54 H (4-49) U/L Alkaline Phosphatase 99 (38-126) U/L Troponin I 0.074 H* (0.000-0.034) ng/mL Total Protein 4.4 L (6.3-8.2) g/dL Albumin 2.1 L (3.5-5.0) g/dL Critical Care Time Critical Care Time: Yes Total Critical Care Time: 55 Disposition Clinical Impression: Cardiac arrest, Ruptured abdominal aortic aneurysm (AAA) Disposition: Referrals: Gerard Mcelroy MD [Primary Care Provider] - 1-2 days Time of Disposition: 11:48 Preliminary Cause of : Ruptured AAA
== END 2021-06-30 13:28 | disposition expired ==
LOC: EC 09:03
DX: I46.9 Cardiac arrest, cause unspecified (principal); I71.3 Abdominal aortic aneurysm, ruptured; I25.10 Atherosclerotic heart disease of native coronary artery without angina pectoris; J44.9 Chronic obstructive pulmonary disease, unspecified; Z86.73 Personal history of transient ischemic attack (TIA), and cerebral infarction without residual deficits; E78.5 Hyperlipidemia, unspecified; I10 Essential (primary) hypertension; M19.90 Unspecified osteoarthritis, unspecified site; F32.A Depression, unspecified; F17.200 Nicotine dependence, unspecified, uncomplicated
CPT/HCPCS: 99291; 92950; 36415; 94002; 80053; 83735; 84484; 85025; 85610; 85730; 71275; 74177; Q9967